=== PATIENT | female | born 1940 | race African-American/Black ===

== ENCOUNTER 2017-12-19 23:13 | Inpatient (IN) | payer MEDICARE, MEDICAID ==
[~2017-12-19] VITALS: Ht 121.9 cm; Wt 61.2 kg
[~2017-12-19 23:13] MED LIST: ALDACTONE50 MG ORAL; BISACODYL5 MG ORAL; CALCIUM500 M2 PO; DOCUSATE SODIU100 MG ORAL; FERROUS SULFAT325 MG ORAL; FUROSEMIDE40 MG ORAL; NEXIUM40 MG ORAL; OYSCO-500500 M1 PO; PANTOPRAZOLE SO40 MG ORAL; SIMVASTATIN20 MG ORAL; ZANTAC300 MG ORAL
[2017-12-19] MEDS ORDERED: ATIVAN2 MG/1 ML IV (23:34)
[2017-12-19] MEDS ORDERED: FERROUS SULFAT325 MG ORAL (23:34)
[2017-12-19] MEDS ORDERED: NORCO 5-325 TA1 EACH ORAL (23:34)
[2017-12-19] MEDS ORDERED: DULCOLAX10 MG RC (23:34)
[2017-12-19] MEDS ORDERED: ALBUTEROL2.5 MG/3 M INH (23:34)
[2017-12-19] MEDS ORDERED: OYSTER SHELL 51 EAC1 PO (23:34)
[2017-12-19] MEDS ORDERED: ACETAMINOPHEN325 M1 RC (23:34)
[2017-12-19] MEDS ORDERED: COMPAZINE25 M1 RC (23:34)
--- NOTE | 2017-12-19 23:47 | Emergency Room Report ---
History of Present Illness General Chief Complaint: Gastrointestinal Bleed Source: Family Member, Medical Record, EMS Present Illness HPI This is a 77-year-old female brought in by EMS with chief complaint of rectal bleeding. She is currently on home hospice for the last 2 years. Thus she is a DO NOT RESUSCITATE/DO NOT RESUSCITATE. Patient is in [facility]. The daughter was changing her diaper and noted bright red blood. No trauma. She is weaker than usual. There was no fever chills but no cough. No nausea no vomiting. Allergies: Coded Allergies: ASPIRIN (Verified Allergy, Unknown, 10/11/14) Patient History Past Medical History: see triage record, old chart reviewed Past Surgical History: other Pertinent Family History: none Social History: Reports: alcohol use - history of Last Menstrual Period: NA Now: No Immunizations: other Reviewed Nursing Documentation: PMH: Agreed; PSxH: Agreed Nursing Documentation-PMH Hx Cardiac Problems: No - CHF Hx Hypertension: Yes Hx Cancer: No Hx Gastrointestinal Problems: Yes - Liver cirrhosis Hx Neurological Problems: No Review of Systems Constitutional: Reports: weakness Eye: Denies: eye pain, blurred vision ENT: Denies: ear pain, nose congestion, throat swelling Respiratory: Denies: cough, shortness of breath Cardiovascular: Denies: chest pain, palpitations Gastrointestinal: Denies: abdominal pain, diarrhea, nausea, vomiting Musculoskeletal: Denies: back pain, joint pain Skin: Denies: rash Neurological: Denies: headache, numbness Endocrine: Denies: increased thirst, increased urine Hematologic/Lymphatic: Denies: easy bruising All Other Systems: negative except mentioned in HPI Physical Exam Vital Signs Date Time Temp Pulse Resp B/P (MAP) Pulse Ox O2 Delivery O2 Flow Rate FiO2 12/19/17 23:18 97.1 103 24 81/44 91 Room Air 97.2 vitals with hypotension Sp02 EP Interpretation: reviewed, normal General Appearance: cachetic, lethargic, Chronically Ill Head: normocephalic, atraumatic Eyes: bilateral eye PERRL, bilateral eye EOMI, bilateral eye scleral icterus ENT: hearing grossly normal, normal pharynx Neck: full range of motion, supple, no meningismus Respiratory: chest non-tender, lungs clear, normal breath sounds Cardiovascular #1: regular rate, rhythm, no murmur Gastrointestinal: normal bowel sounds, non tender, no mass, no organomegaly, no bruit, distended - with ascites Musculoskeletal: back normal Neurologic: grossly normal Psychiatric: depressed affect Skin: warm/dry Procedures Critical Care Time Critical Care Time Critical care is mandated in this patient who presented with sepsis secondary to pneumonia and uti. Patient require my urgent intervention to attenuate the risks of metabolic collapse which may lead to cardiovascular collapse and . Critical care time is 35 minutes excluding any reportable procedure. Critical care time included evaluation, multiple reevaluation, looking at old charts, interpreting laboratory and diagnostic data, discussing case with patient and family and consultants, and charting. Central Line Central Line : Consent: Verbal Central Line Lumen: triple Maximal Sterile Barrier Tech: yes cap, yes mask, yes sterile gown, yes sterile gloves, yes large sterile sheet, yes hand hygiene, yes chlorhexidine prep Central Line Postion: internal jugular (L) Anesthesia: local cc's of anesthesia: 3 Complications: none Central Line Post Position: sutured, good blood return, position confirmed w / CXR Attempts: One Patient Tolerated: Well Complications: None Medical Decision Making Diagnostic Impression: Primary Impression: Septic shock Additional Impressions: Pneumonia Qualified Codes: J18.1 - Lobar pneumonia, unspecified organism End stage liver disease Acute renal failure (ARF) Qualified Codes: N17.9 - Acute kidney failure, unspecified Hepatorenal syndrome Bacteriuria Anemia Qualified Codes: D64.9 - Anemia, unspecified Cirrhosis of liver with ascites Qualified Codes: K70.31 - Alcoholic cirrhosis of liver with ascites ER Course This is an unfortunate patient who has end-stage liver disease with cirrhosis and ascites. She was in hospice for the last 2 years. According to her daughter she has decreased appetite not really eating much for the last couple weeks. The daughter called 911 knowing that this would break their agreement with hospice. She wants everything to be done now. She wants CPR and intubation. Looking through the hospice paperwork, her baseline blood pressure usually runs in the 90s systolic. She was a very hard IV access. Her 1 line infiltrated so I place a central line for fluid antibiotics. She is actually more alert and indicate after IV fluid. I contacted Dr. Borja for admission since he admitted her last. Laboratory Tests Test 12/19/17 23:30 12/19/17 23:53 12/20/17 01:40 White Blood Count 17.3 K/UL (4.8-10.8) H Red Blood Count 3.87 M/UL (4.20-5.40) L Hemoglobin 9.8 G/DL (12.0-16.0) L Hematocrit 29.4 % (37.0-47.0) L Mean Corpuscular Volume 76 FL (80-99) L Mean Corpuscular Hemoglobin 25.3 PG (27.0-31.0) L Mean Corpuscular Hemoglobin Concent 33.3 G/DL (32.0-36.0) Red Cell Distribution Width 14.3 % (11.6-14.8) Platelet Count 114 K/UL (150-450) L Mean Platelet Volume 12.9 FL (6.5-10.1) H Neutrophils (%) (Auto) 80.8 % (45.0-75.0) H Lymphocytes (%) (Auto) 12.9 % (20.0-45.0) L Monocytes (%) (Auto) 5.7 % (1.0-10.0) Eosinophils (%) (Auto) 0.0 % (0.0-3.0) Basophils (%) (Auto) 0.6 % (0.0-2.0) Prothrombin Time 14.5 SEC (9.30-11.50) H Prothromb Time International Ratio 1.4 (0.9-1.1) H Activated Partial Thromboplast Time 40 SEC (23-33) H Sodium Level 138 MMOL/L (136-145) Potassium Level 4.4 MMOL/L (3.5-5.1) Chloride Level 102 MMOL/L (98-107) Carbon Dioxide Level 30 MMOL/L (21-32) Anion Gap 7 mmol/L (5-15) Blood Urea Nitrogen 66 mg/dL (7-18) H Creatinine 1.8 MG/DL (0.55-1.30) H Estimat Glomerular Filtration Rate mL/min (>60) Glucose Level 68 MG/DL (74-106) L Lactic Acid Level 2.10 mmol/L (0.66-2.22) Calcium Level 8.1 MG/DL (8.5-10.1) L Total Bilirubin 2.4 MG/DL (0.2-1.0) H Direct Bilirubin 1.6 MG/DL (0.0-0.3) H Aspartate Amino Transf (AST/SGOT) 37 U/L (15-37) Alanine Aminotransferase (ALT/SGPT) 10 U/L (12-78) L Alkaline Phosphatase 62 U/L (46-116) Troponin I 0.000 ng/mL (0.000-0.056) Total Protein 6.7 G/DL (6.4-8.2) Albumin 1.3 G/DL (3.4-5.0) L Globulin 5.4 g/dL Albumin/Globulin Ratio 0.2 (1.0-2.7) L Urine Color Estelita Urine Appearance Slightly cloudy Urine pH 5 (4.5-8.0) Urine Specific [place] 1.015 (1.005-1.035) Urine Protein 1+ (NEGATIVE) H Urine Glucose (UA) Negative (NEGATIVE) Urine Ketones Negative (NEGATIVE) Urine Occult Blood Negative (NEGATIVE) Urine Nitrite Negative (NEGATIVE) Urine Bilirubin Negative (NEGATIVE) Urine Ictotest Positive Urine Urobilinogen Normal MG/DL (0.0-1.0) Urine Leukocyte Esterase 1+ (NEGATIVE) H Urine RBC 0-2 /HPF (0 - 2) Urine WBC 2-4 /HPF (0 - 2) Urine Squamous Epithelial Cells Many /LPF (NONE/OCC) H Urine Calcium Oxalate Crystals Moderate /LPF (NONE) Urine Bacteria Few /HPF (NONE) Ammonia 65 umol/L (11-32) H Lab Results Impression labs with ARF EKG Diagnostic Results Rate: tachycardiac Rhythm: NSR ST Segments: other - NSST changes Rhythm Strip Diag. Results Rhythm Strip Time: 23:48 EP Interpretation: yes Rate: 110 Rhythm: NSR, no PVC's, no ectopy Chest X-Ray Diagnostic Results Chest X-Ray Diagnostic Results #1: Chest X-Ray Ordered: Yes # of Views/Limited/Complete: 1 View Indication: Shortness of Breath EP Interpretation: Yes Interpretation: no pneumothorax, other - poor inspiration. atelectasis. Impression: Other - Poor inspiratory film Electronically Signed by: Uli Collazo MD Chest X-Ray Diagnostic Results #2: Chest X-Ray Ordered: Yes # of Views/Limited/Complete: 2 View Indication: Other - post central line EP Interpretation: Yes Interpretation: no effusion, no pneumothorax, other - central line going to left side Impression: Other - s/p central line, rt lung atelectasis vs infiltrate Electronically Signed by: Uli Collazo MD Chest X-Ray Diagnostic Results #3: Chest X-Ray Ordered: Yes # of Views/Limited/Complete: 1 View Indication: Other EP Interpretation: Yes Interpretation: no effusion, no pneumothorax, other - better adjustment of central line Impression: Other - atelectasis Electronically Signed by: Uli Collazo MD Last Vital Signs Date Time Temp Pulse Resp B/P (MAP) Pulse Ox O2 Delivery O2 Flow Rate FiO2 12/19/17 23:18 97.1 103 24 81/44 91 Room Air 97.2 Status: improved Disposition: ADMITTED INPATIENT Condition: Critical Referrals: NON PHYSICIAN (PCP) ULI COLLAZO M.D. Dec 19, 2017 23:47
[2017-12-19 23:50] LABS: BASOPHILS % (AUTO) 0.6 % (0.0-2.0); HEMATOCRIT 29.4 % (37.0-47.0); HEMOGLOBIN 9.8 G/DL (12.0-16.0); LYMPHOCYTES % (AUTO) 12.9 % (20.0-45.0); MEAN CORPUSCULAR VOLUME 76 FL (80-99); MONOCYTES % (AUTO) 5.7 % (1.0-10.0); NEUTROPHILS % (AUTO) 80.8 % (45.0-75.0); PLATELET COUNT 114 K/UL (150-450); RED BLOOD COUNT 3.87 M/UL (4.20-5.40); RED CELL DISTRIBUTION WIDTH 14.3 % (11.6-14.8); WHITE BLOOD COUNT 17.3 K/UL (4.8-10.8)
[2017-12-20] VITALS (53 sets, daily range): BP systolic 56–120; BP diastolic 33–71
[2017-12-20 00:02] LABS: ANION GAP 7 mmol/L (5-15); BLOOD UREA NITROGEN 66 mg/dL (7-18); CALCIUM 8.1 MG/DL (8.5-10.1); CARBON DIOXIDE 30 MMOL/L (21-32); CHLORIDE 102 MMOL/L (98-107); CREATININE 1.8 MG/DL (0.55-1.30); INR 1.4 (0.9-1.1); POTASSIUM 4.4 MMOL/L (3.5-5.1); SODIUM 138 MMOL/L (136-145)
[2017-12-20 00:18] LABS: ALANINE AMINOTRANSFERASE 10 U/L (12-78); ALBUMIN 1.3 G/DL (3.4-5.0); ALBUMIN/GLOBULIN RATIO 0.2 (1.0-2.7); ALKALINE PHOSPHATASE 62 U/L (46-116); ASPARTATE AMINO TRANSFERASE 37 U/L (15-37); BILIRUBIN,TOTAL 2.4 MG/DL (0.2-1.0)
[2017-12-20 00:19] LABS: BILIRUBIN, URINE NEGATIVE (NEGATIVE); GLUCOSE, URINE (UA) NEGATIVE (NEGATIVE); KETONES,URINE NEGATIVE (NEGATIVE); LEUKOCYTE ESTERASE ,URINE 1+ (NEGATIVE); NITRITE,URINE NEGATIVE (NEGATIVE); PH,URINE 5 (4.5-8.0); PROTEIN,URINE 1+ (NEGATIVE); UROBILINOGEN,URINE NORMAL MG/DL (0.0-1.0)
[2017-12-20 00:36] LABS: APPEARANCE,URINE SLIGHTLY CLOUDY; COLOR,URINE AMBER
[2017-12-20 00:40] LABS: BILIRUBIN,DIRECT 1.6 MG/DL (0.0-0.3)
[2017-12-20] MEDS ORDERED: Piperacillin/Tazobactam 3.375 GM in NS 110 ML IVPB ONE (02:30)
[2017-12-20 06:11] LABS: HEMATOCRIT 26.9 % (37.0-47.0); HEMOGLOBIN 8.7 G/DL (12.0-16.0); MEAN CORPUSCULAR VOLUME 78 FL (80-99); RED BLOOD COUNT 3.46 M/UL (4.20-5.40); RED CELL DISTRIBUTION WIDTH 13.9 % (11.6-14.8); WHITE BLOOD COUNT 17.9 K/UL (4.8-10.8)
[2017-12-20 06:13] LABS: ANION GAP 7 mmol/L (5-15); BLOOD UREA NITROGEN 59 mg/dL (7-18); CALCIUM 7.1 MG/DL (8.5-10.1); CARBON DIOXIDE 26 MMOL/L (21-32); CHLORIDE 106 MMOL/L (98-107); CREATININE 1.7 MG/DL (0.55-1.30); POTASSIUM 3.6 MMOL/L (3.5-5.1); SODIUM 139 MMOL/L (136-145)
[2017-12-20 06:23] LABS: ALANINE AMINOTRANSFERASE 10 U/L (12-78); ALBUMIN 1.1 G/DL (3.4-5.0); ALBUMIN/GLOBULIN RATIO 0.2 (1.0-2.7); ALKALINE PHOSPHATASE 52 U/L (46-116); ASPARTATE AMINO TRANSFERASE 27 U/L (15-37); BILIRUBIN,TOTAL 2.1 MG/DL (0.2-1.0)
[2017-12-20 06:29] LABS: BILIRUBIN,DIRECT 1.5 MG/DL (0.0-0.3)
[2017-12-20] MEDS ORDERED: Miralax 17gm pkt ORAL PRN (06:30)
[2017-12-20] MEDS ORDERED: Phytonadione 10 MG in D5W 55 ML IVPB ONE (06:30)
[2017-12-20] MEDS ORDERED: Morphine Sulfate 2mg/ml Inj IVP PRN (06:30)
[2017-12-20] MEDS ORDERED: Nitroglycerin Subl 0.4mg tab SL PRN (06:30)
[2017-12-20] MEDS ORDERED: DOPamine 400mg/250ml 250 ML IV SCH (06:30)
[2017-12-20] MEDS ORDERED: Mylanta II UD 30ml ORAL PRN (06:30)
[2017-12-20] MEDS: D5NS 1,000 ML IV SCH ×2 (06:52→15:44)
[2017-12-20] MEDS ORDERED: Ketorolac 30mg Inj IV PRN (09:00)
[2017-12-20 09:26] LABS: PLATELET COUNT 138 K/UL (150-450)
--- NOTE | 2017-12-20 10:43 | Diagnostic Imaging Report ---
Indication: Shortness of breath Technique: XRAY Chest 1v Comparison: 05/19/2015 Findings: Limited exam with low lung volumes and significant patient rotation. Heart size and mediastinal contours appear stable. There is patchy atelectasis/consolidation at the left base. No large pleural effusion. No pneumothorax. There is osteopenia, scoliosis and degenerative change of the spine. Likely age-indeterminate compression deformities of mid thoracic vertebral bodies. Impression: Limited exam due to low lung volumes and significant patient rotation. Patchy left basilar atelectasis/consolidation. Heart size and mediastinal contours appear stable.
--- NOTE | 2017-12-20 10:46 | Consultation ---
History of Present Illness General Date patient seen: Dec 20, 2017 Chief Complaint: Gastrointestinal Bleed Reason for Consultation: septic shock Present Illness HPI 77-year-old female with hx of end-stage liver disease, brought in by EMS with chief complaint of rectal bleeding. She was on home hospice for the last 2 years. The daughter was changing her diaper and noted bright red blood. No trauma. She is weaker than usual. There was no fever chills but no cough. She looks cachectic and chronically ill, confused. Doesn't respond to questions. Allergies: Coded Allergies: ASPIRIN (Verified Allergy, Unknown, 10/11/14) Medication History Scheduled Bisacodyl* (Dulcolax*), 5 MG ORAL DAILY, (Reported) Calcium Carbonate (Oysco-500), 500 MG PO DAILY, (Reported) Docusate Sodium* (Docusate Sodium*), 100 MG ORAL TWICE A DAY, (Reported) Esomeprazole Magnesium (Nexium), 40 MG ORAL DAILY, (Reported) Ferrous Sulfate* (Ferrous Sulfate*), 325 MG ORAL DAILY, (Reported) Furosemide* (Lasix*), 20 MG ORAL BID, (Reported) Lorazepam* (Ativan*), Unknown Dose IV Q4H, (Reported) Ranitidine Hcl (Zantac), 300 MG ORAL DAILY, (Reported) Simvastatin (Zocor), 20 MG ORAL BEDTIME, (Reported) Scheduled PRN Acetaminophen* (Acetaminophen 325MG Tablet*), 650 MG RC Q4HR PRN for Fever/ Headache/Mild Pain, (Reported) Albuterol Sulfate* (Albuterol Sulfate Hhn*), Unknown Dose INH Q4H PRN for Shortness of Breath, (Reported) Bisacodyl (Dulcolax), 10 MG RC PRN PRN for Constipation, (Reported) Hydrocodone Bit/Acetaminophen 5-325* ([place] 5-325*), 1 TAB ORAL Q4H PRN for For Pain, (Reported) Prochlorperazine Maleate (Compazine), 25 MG RC Q12HR PRN for Nausea & Vomiting, (Reported) Miscellaneous Medications Calcium Carbonate/Vitamin D3 (Oyster Shell 500 Mg + Vit D Tb), 1 EACH PO, ( Reported) Patient History Healthcare decision maker Resuscitation status Advanced Directive on File Past Medical/Surgical History Past Medical/Surgical History: (1) Cirrhosis of liver with ascites (2) End stage liver disease (3) Elevated lipase (4) Elevated CEA Review of Systems Constitutional: Reports: malaise, weakness All Other Systems: negative except mentioned in HPI Physical Exam General Appearance: cachetic Lines, tubes and drains: peripheral HEENT: normocephalic, atraumatic Neck: non-tender, normal alignment Respiratory/Chest: chest wall non-tender, lungs clear Breasts: no masses Cardiovascular/Chest: normal peripheral pulses, normal rate Abdomen: distended Genitourinary/Rectal: normal genital exam Extremities: normal range of motion Skin Exam: jaundice Last 24 Hour Vital Signs Date Time Temp Pulse Resp B/P (MAP) Pulse Ox O2 Delivery O2 Flow Rate FiO2 12/20/17 08:26 81/45 12/20/17 08:19 95 Nasal Cannula 2.0 28 12/20/17 08:19 Nasal Cannula 2.0 28 12/20/17 07:00 111 20 111/71 100 Nasal Cannula 2.0 12/20/17 06:45 107 20 56/36 100 Nasal Cannula 2.0 12/20/17 06:30 101 20 90/58 100 Nasal Cannula 2.0 12/20/17 06:15 98 20 91/52 100 Nasal Cannula 2.0 12/20/17 06:00 94 20 95/49 100 Nasal Cannula 2.0 12/20/17 05:51 102 12/20/17 05:45 95 20 94/52 100 Nasal Cannula 2.0 12/20/17 05:36 97.5 92 16 109/60 95 Room Air 12/20/17 05:30 97.3 102 22 88/53 98 Nasal Cannula 2.0 97.3 12/20/17 05:28 Nasal Cannula 2.0 28 12/20/17 05:28 96 Nasal Cannula 2.0 28 12/20/17 05:08 97.5 92 16 109/60 95 97.5 12/20/17 05:06 95 17 111/60 95 12/20/17 04:45 101 20 88/63 94 12/20/17 04:30 98 15 120/70 95 12/20/17 04:16 73/41 12/20/17 04:11 79/41 12/20/17 04:09 71/35 12/20/17 04:06 68/38 12/20/17 04:01 71/35 12/20/17 04:00 112 17 74/39 94 12/20/17 03:46 70/43 12/20/17 03:41 66/41 12/20/17 03:36 86/43 12/20/17 03:30 119 15 66/41 94 12/20/17 03:00 117 28 86/43 96 Room Air 12/20/17 02:30 110 18 73/37 94 Room Air 12/20/17 02:00 108 18 72/40 94 Room Air 12/20/17 01:30 121 23 69/44 96 12/20/17 01:00 97.2 60 12 85/33 100 Room Air 97.2 12/20/17 00:30 95 19 81/42 94 12/20/17 00:00 100 13 91/62 94 12/19/17 23:18 97.1 103 24 81/44 91 Room Air 97.2 Intake and Output 12/19/17 12/20/17 19:00 07:00 Intake Total 1000 ml Balance 1000 ml Intake IV Total 1000 ml # Voids 1 Laboratory Tests Test 12/19/17 23:30 12/19/17 23:53 12/20/17 01:40 12/20/17 02:26 White Blood Count 17.3 K/UL (4.8-10.8) H Red Blood Count 3.87 M/UL (4.20-5.40) L Hemoglobin 9.8 G/DL (12.0-16.0) L Hematocrit 29.4 % (37.0-47.0) L Mean Corpuscular Volume 76 FL (80-99) L Mean Corpuscular Hemoglobin 25.3 PG (27.0-31.0) L Mean Corpuscular Hemoglobin Concent 33.3 G/DL (32.0-36.0) Red Cell Distribution Width 14.3 % (11.6-14.8) Platelet Count 114 K/UL (150-450) L Mean Platelet Volume 12.9 FL (6.5-10.1) H Neutrophils (%) (Auto) 80.8 % (45.0-75.0) H Lymphocytes (%) (Auto) 12.9 % (20.0-45.0) L Monocytes (%) (Auto) 5.7 % (1.0-10.0) Eosinophils (%) (Auto) 0.0 % (0.0-3.0) Basophils (%) (Auto) 0.6 % (0.0-2.0) Prothrombin Time 14.5 SEC (9.30-11.50) H Prothromb Time International Ratio 1.4 (0.9-1.1) H Activated Partial Thromboplast Time 40 SEC (23-33) H Sodium Level 138 MMOL/L (136-145) Potassium Level 4.4 MMOL/L (3.5-5.1) Chloride Level 102 MMOL/L (98-107) Carbon Dioxide Level 30 MMOL/L (21-32) Anion Gap 7 mmol/L (5-15) Blood Urea Nitrogen 66 mg/dL (7-18) H Creatinine 1.8 MG/DL (0.55-1.30) H Estimat Glomerular Filtration Rate mL/min (>60) Glucose Level 68 MG/DL (74-106) L Lactic Acid Level 2.10 mmol/L (0.66-2.22) 2.10 mmol/L (0.66-2.22) Calcium Level 8.1 MG/DL (8.5-10.1) L Total Bilirubin 2.4 MG/DL (0.2-1.0) H Direct Bilirubin 1.6 MG/DL (0.0-0.3) H Aspartate Amino Transf (AST/SGOT) 37 U/L (15-37) Alanine Aminotransferase (ALT/SGPT) 10 U/L (12-78) L Alkaline Phosphatase 62 U/L (46-116) Troponin I 0.000 ng/mL (0.000-0.056) Total Protein 6.7 G/DL (6.4-8.2) Albumin 1.3 G/DL (3.4-5.0) L Globulin 5.4 g/dL Albumin/Globulin Ratio 0.2 (1.0-2.7) L Urine Color Estelita Urine Appearance Slightly cloudy Urine pH 5 (4.5-8.0) Urine Specific [place] 1.015 (1.005-1.035) Urine Protein 1+ (NEGATIVE) H Urine Glucose (UA) Negative (NEGATIVE) Urine Ketones Negative (NEGATIVE) Urine Occult Blood Negative (NEGATIVE) Urine Nitrite Negative (NEGATIVE) Urine Bilirubin Negative (NEGATIVE) Urine Ictotest Positive Urine Urobilinogen Normal MG/DL (0.0-1.0) Urine Leukocyte Esterase 1+ (NEGATIVE) H Urine RBC 0-2 /HPF (0 - 2) Urine WBC 2-4 /HPF (0 - 2) Urine Squamous Epithelial Cells Many /LPF (NONE/OCC) H Urine Calcium Oxalate Crystals Moderate /LPF (NONE) Urine Bacteria Few /HPF (NONE) Ammonia 65 umol/L (11-32) H Test 12/20/17 05:50 White Blood Count 17.9 K/UL (4.8-10.8) H Red Blood Count 3.46 M/UL (4.20-5.40) L Hemoglobin 8.7 G/DL (12.0-16.0) L Hematocrit 26.9 % (37.0-47.0) L Mean Corpuscular Volume 78 FL (80-99) L Mean Corpuscular Hemoglobin 25.3 PG (27.0-31.0) L Mean Corpuscular Hemoglobin Concent 32.5 G/DL (32.0-36.0) Red Cell Distribution Width 13.9 % (11.6-14.8) Platelet Count 138 K/UL (150-450) L Mean Platelet Volume 16.1 FL (6.5-10.1) H Neutrophils (%) (Auto) % (45.0-75.0) Lymphocytes (%) (Auto) % (20.0-45.0) Monocytes (%) (Auto) % (1.0-10.0) Eosinophils (%) (Auto) % (0.0-3.0) Basophils (%) (Auto) % (0.0-2.0) Differential Total Cells Counted 100 Neutrophils % (Manual) 91 % (45-75) H Lymphocytes % (Manual) 1 % (20-45) L Monocytes % (Manual) 8 % (1-10) Eosinophils % (Manual) 0 % (0-3) Basophils % (Manual) 0 % (0-2) Band Neutrophils 0 % (0-8) Platelet Estimate Decreased L Platelet Morphology Giant Platelets 1+ Polychromasia 1+ Hypochromasia 1+ Microcytosis 1+ Sodium Level 139 MMOL/L (136-145) Potassium Level 3.6 MMOL/L (3.5-5.1) Chloride Level 106 MMOL/L (98-107) Carbon Dioxide Level 26 MMOL/L (21-32) Anion Gap 7 mmol/L (5-15) Blood Urea Nitrogen 59 mg/dL (7-18) H Creatinine 1.7 MG/DL (0.55-1.30) H Estimat Glomerular Filtration Rate mL/min (>60) Glucose Level 108 MG/DL (74-106) H Calcium Level 7.1 MG/DL (8.5-10.1) L Total Bilirubin 2.1 MG/DL (0.2-1.0) H Direct Bilirubin 1.5 MG/DL (0.0-0.3) H Aspartate Amino Transf (AST/SGOT) 27 U/L (15-37) Alanine Aminotransferase (ALT/SGPT) 10 U/L (12-78) L Alkaline Phosphatase 52 U/L (46-116) Total Protein 5.8 G/DL (6.4-8.2) L Albumin 1.1 G/DL (3.4-5.0) L Globulin 4.7 g/dL Albumin/Globulin Ratio 0.2 (1.0-2.7) L Height (Feet): 4 Weight (Pounds): 135 Medications Current Medications Medications (Trade) Dose Ordered Sig/Derek Route PRN Reason Start Time Stop Time Status Last Admin Dose Admin Acetaminophen (Tylenol) 650 mg Q4H PRN ORAL fever 12/20/17 06:30 01/19/18 06:29 Al Hydroxide/Mg Hydroxide (Mylanta II) 30 ml Q6H PRN ORAL dyspepsia 12/20/17 06:30 01/19/18 06:29 Dextrose (Dextrose 50%) STAT PRN IV Hypoglycemia 12/20/17 06:30 01/19/18 06:29 Dextrose/Sodium Chloride 1,000 ml @ 100 mls/hr Q10H IV 12/20/17 06:30 01/19/18 06:29 12/20/17 06:52 Diphenhydramine HCl (Benadryl) 25 mg Q6H PRN ORAL Itching/Pruritis 12/20/17 06:30 01/19/18 06:29 Ketorolac Tromethamine (Toradol 30mg) 15 mg Q6H PRN IV Moderate Pain (Pain Scale 4-6) 12/20/17 09:00 12/25/17 08:59 Morphine Sulfate (Morphine Sulfate) 2 mg EVERY 4 HOURS PRN IVP severe Pain (Pain Scale 7-10) 12/20/17 06:30 12/27/17 06:29 Nitroglycerin (Ntg) 0.4 mg Q5M X 3 DOSES PRN SL Prn Chest Pain 12/20/17 06:30 01/19/18 06:29 Norepinephrine Bitartrate 8 mg/ Sodium Chloride 250 ml @ 0 mls/hr Q24H IV 12/20/17 06:45 01/19/18 06:44 12/20/17 08:26 Ondansetron HCl (Zofran) 4 mg Q6H PRN IVP Nausea & Vomiting 12/20/17 06:30 01/19/18 06:29 Polyethylene Glycol (Miralax) 17 gm HSPRN PRN ORAL Constipation 12/20/17 06:30 01/19/18 06:29 Sodium Chloride 1,000 ml @ 10 mls/hr Q24H ONCE IV 12/19/17 23:30 12/20/17 23:29 12/20/17 00:15 Temazepam (Restoril) 15 mg HSPRN PRN ORAL Insomnia 12/20/17 06:30 12/27/17 06:29 Assessment/Plan Problem List: (1) Septic shock ICD Codes: A41.9 - Sepsis, unspecified organism; R65.21 - Severe sepsis with septic shock SNOMED: 41145498 (2) Pneumonia ICD Codes: J18.9 - Pneumonia, unspecified organism SNOMED: 882279359 Qualifiers: Qualified Codes: J18.1 - Lobar pneumonia, unspecified organism (3) End stage liver disease ICD Codes: K72.90 - Hepatic failure, unspecified without coma SNOMED: 981301365 (4) Acute renal failure (ARF) ICD Codes: N17.9 - Acute kidney failure, unspecified SNOMED: 65668393, 343927690 Qualifiers: Qualified Codes: N17.9 - Acute kidney failure, unspecified (5) Bacteriuria ICD Codes: R82.71 - Bacteriuria SNOMED: 90694282 (6) Anemia ICD Codes: D64.9 - Anemia, unspecified SNOMED: 525232816 Qualifiers: Qualified Codes: D64.9 - Anemia, unspecified Assessment/Plan iv fluids iv abx on levophed Paracentesis when vital signs are stable GI evaluation PRBC PRN FFP, vitamin K check plt and INR in am family meeting about goal of care. Jeni Cabrera MD Dec 20, 2017 10:46
--- NOTE | 2017-12-20 10:46 | Diagnostic Imaging Report ---
Indication: Central line placement consolidation Technique: XRAY Chest 1v Comparison: 12/19/2017, 23:37 Findings: Interval placement of a right internal jugular vein approach central venous catheter. The catheter is malpositioned in the region of the left brachiocephalic/subclavian vein. Repositioning recommended. No pneumothorax. Additional findings without significant interval change compared to the prior exam. Impression: Malpositioned right transjugular central venous catheter. Repositioning recommended.
--- NOTE | 2017-12-20 10:49 | Diagnostic Imaging Report ---
Indication: Central line repositioning Technique: XRAY Chest 1v Comparison: 12/20/2017, 1:53 Findings: Interval retraction/repositioning of right transjugular central venous catheter. Catheter tip in the region of the lower SVC. Heart size and mediastinal contours are stable. There is again patchy atelectasis at the left base. Pulmonary vascularity appears slightly hazier compared to the prior exam and there is some linear opacity in the right midlung. This is unchanged. No large pleural effusion. No definite pneumothorax. Osteopenia, degenerative change of the spine age-indeterminate compression deformity of mid/lower thoracic vertebral body. Impression: Interval retraction/repositioning of right transjugular central venous catheter. Catheter tip now in the expected region of the lower SVC. No definite pneumothorax. Increased haziness of the pulmonary vascularity possibly representing mild interstitial edema/fluid overload. New linear opacity in the right midlung possibly fluid along the fissure or atelectasis. Clinical correlation and follow-up exam recommended.
--- NOTE | 2017-12-20 10:58 | General Progress Note ---
Progress Note Progress Note [id number] full consult dictated TAMAR DOLL Dec 20, 2017 10:58
--- NOTE | 2017-12-20 12:50 | Consultation ---
Consult Note Consult Note [id number] Román Ching MD Dec 20, 2017 12:50
[2017-12-20] MEDS: Meropenem 1 GM in NS 55 ML IVPB SCH (13:45)
[2017-12-20] MEDS: Midodrine 10mg tab ORAL SCH ×2 (13:46→17:15)
[2017-12-20] MEDS ORDERED: Digoxin 0.5mg/2ml Inj IVP ONE (19:30)
--- NOTE | 2017-12-20 19:45 | History and Physical Report ---
DATE OF ADMISSION: 12/20/2017 CONSULTANTS: 1. Jeni Cabrera M.D. 2. Román Ching M.D. 3. Amol Maldonado M.D. 4. Janice Hinton M.D. CHIEF COMPLAINT: Pneumonia, sepsis, shock. BRIEF HISTORY: This is a 77-year-old female, who lives at home, previously on hospice, apparently became very short of breath and weak, and daughter reversed her hospice and brought her to [facility], diagnosed with pneumonia, sepsis, shock and admitted to ICU for further care. Currently awake in bed, slightly confused. No complaint otherwise. REVIEW OF SYSTEMS: No chest pain. Slight short of breath. No nausea, vomiting, or diarrhea. PAST MEDICAL HISTORY: Renal insufficiency, hypertension, pancreatic cyst, hepatorenal syndrome, cirrhosis of the liver, and acute renal failure. PAST SURGICAL HISTORY: Unknown. ALLERGIES: Aspirin. SOCIAL HISTORY: Unable to obtain secondary to the patient's confusion. PHYSICAL EXAMINATION: GENERAL: Calm in bed, oriented x1, in no acute distress. VITAL SIGNS: Temperature is 97, pulse 99, respirations 14, blood pressure 82/47. CARDIOVASCULAR: No murmur. LUNGS: Distant. Poor exchange. ABDOMEN: Bowel sounds distant, positive. Slightly distended. Soft. No guarding. No rigidity. No rebound. EXTREMITIES: No cyanosis, clubbing, or edema. NEUROLOGIC: The patient moves all extremities, slightly weak. LABORATORY AND DIAGNOSTIC DATA: White count 17, H and H 8.7/26, platelets 138. BMP shows BUN and creatinine 59 and 1.7, glucose 108, albumin 1.1. INR is 1.4, PTT is 40. Urinalysis shows 1+ leukocyte esterase. MEDICATIONS: Include Protonix, midodrine, albumin, Ketoralac, norepinephrine, morphine, Tylenol, Zofran, temazepam, Zosyn, and levofloxacin. ASSESSMENT: 1. Pneumonia. 2. Urinary tract infection. 3. Sepsis. 4. Shock. 5. Anemia, . 6. Acute renal failure. 7. Cirrhosis. 8. Renal failure. PLAN: 1. O2 and pulmonary treatment. 2. Antibiotics per Infectious Disease. 3. Blood pressure and blood sugar control. 4. Resume home medications. 5. OT, PT, and dietary evaluation. 6. CBC and BMP in morning. 7. We will continue to follow this patient. Dawson Borja D.O. DR: HUNTER JOB#: [id number] CC:
--- NOTE | 2017-12-20 20:15 | Cardiology Progress Note ---
Assessment/Plan Assessment/Plan The patient is seen and examined, full consult note is dictated. Objective Last 24 Hour Vital Signs Date Time Temp Pulse Resp B/P (MAP) Pulse Ox O2 Delivery O2 Flow Rate FiO2 12/20/17 19:52 155 12/20/17 19:00 150 19 88/52 99 Nasal Cannula 2.0 12/20/17 18:30 142 19 88/52 96 Nasal Cannula 2.0 12/20/17 18:06 89/48 12/20/17 18:00 97.0 142 18 91/42 99 Nasal Cannula 2.0 97.0 12/20/17 17:30 140 18 90/45 99 Nasal Cannula 2.0 12/20/17 17:00 139 16 84/54 99 Nasal Cannula 2.0 12/20/17 16:30 147 16 82/55 100 Nasal Cannula 2.0 12/20/17 16:00 138 12/20/17 16:00 97.0 144 17 83/47 100 Nasal Cannula 2.0 97.0 12/20/17 15:30 150 17 73/42 92 Nasal Cannula 2.0 12/20/17 15:00 146 17 79/47 93 Nasal Cannula 2.0 12/20/17 14:30 124 17 91/50 95 Nasal Cannula 2.0 12/20/17 14:00 105 18 91/46 96 Nasal Cannula 2.0 12/20/17 13:30 98 15 91/42 96 Nasal Cannula 2.0 12/20/17 13:00 99 14 91/42 99 Nasal Cannula 2.0 12/20/17 12:30 102 15 86/42 96 Nasal Cannula 2.0 12/20/17 12:00 102 12/20/17 12:00 97.2 107 14 74/42 98 Nasal Cannula 2.0 97.2 12/20/17 11:30 100 14 83/39 96 Nasal Cannula 2.0 12/20/17 11:00 100 11 85/41 95 Nasal Cannula 2.0 12/20/17 10:30 99 14 82/47 99 Nasal Cannula 2.0 12/20/17 10:00 97 20 82/47 97 Nasal Cannula 2.0 12/20/17 09:30 100 16 83/53 100 Nasal Cannula 2.0 12/20/17 09:00 105 20 91/48 100 Nasal Cannula 2.0 12/20/17 08:30 103 18 84/44 100 Nasal Cannula 2.0 12/20/17 08:26 81/45 12/20/17 08:19 95 Nasal Cannula 2.0 28 12/20/17 08:19 Nasal Cannula 2.0 28 12/20/17 08:00 97.0 109 17 83/43 98 Nasal Cannula 2.0 97.0 12/20/17 07:30 100 15 94/50 100 Nasal Cannula 2.0 12/20/17 07:00 111 20 111/71 100 Nasal Cannula 2.0 12/20/17 06:45 107 20 56/36 100 Nasal Cannula 2.0 12/20/17 06:30 101 20 90/58 100 Nasal Cannula 2.0 12/20/17 06:15 98 20 91/52 100 Nasal Cannula 2.0 12/20/17 06:00 94 20 95/49 100 Nasal Cannula 2.0 12/20/17 05:51 102 12/20/17 05:45 95 20 94/52 100 Nasal Cannula 2.0 12/20/17 05:36 97.5 92 16 109/60 95 Room Air 12/20/17 05:30 97.3 102 22 88/53 98 Nasal Cannula 2.0 97.3 12/20/17 05:28 Nasal Cannula 2.0 28 12/20/17 05:28 96 Nasal Cannula 2.0 28 12/20/17 05:08 97.5 92 16 109/60 95 97.5 12/20/17 05:06 95 17 111/60 95 12/20/17 04:45 101 20 88/63 94 12/20/17 04:30 98 15 120/70 95 12/20/17 04:16 73/41 18 04:11 79/41 12/20/17 04:09 71/35 12/20/17 04:06 68/38 12/20/17 04:01 71/35 12/20/17 04:00 112 17 74/39 94 12/20/17 03:46 70/43 12/20/17 03:41 66/41 12/20/17 03:36 86/43 12/20/17 03:30 119 15 66/41 94 12/20/17 03:00 117 28 86/43 96 Room Air 12/20/17 02:30 110 18 73/37 94 Room Air 4/20/18 02:00 108 18 72/40 94 Room Air 12/20/17 01:30 121 23 69/44 96 12/20/17 01:00 97.2 60 12 85/33 100 Room Air 97.2 12/20/17 00:30 95 19 81/42 94 12/20/17 00:00 100 13 91/62 94 12/19/17 23:18 97.1 103 24 81/44 91 Room Air 97.2 Intake and Output 12/19/17 12/20/17 19:00 07:00 Intake Total 1000 ml Balance 1000 ml Intake IV Total 1000 ml # Voids 1 Laboratory Tests Test 12/19/17 23:30 12/19/17 23:53 12/20/17 01:40 12/20/17 02:26 White Blood Count 17.3 K/UL (4.8-10.8) H Red Blood Count 3.87 M/UL (4.20-5.40) L Hemoglobin 9.8 G/DL (12.0-16.0) L Hematocrit 29.4 % (37.0-47.0) L Mean Corpuscular Volume 76 FL (80-99) L Mean Corpuscular Hemoglobin 25.3 PG (27.0-31.0) L Mean Corpuscular Hemoglobin Concent 33.3 G/DL (32.0-36.0) Red Cell Distribution Width 14.3 % (11.6-14.8) Platelet Count 114 K/UL (150-450) L Mean Platelet Volume 12.9 FL (6.5-10.1) H Neutrophils (%) (Auto) 80.8 % (45.0-75.0) H Lymphocytes (%) (Auto) 12.9 % (20.0-45.0) L Monocytes (%) (Auto) 5.7 % (1.0-10.0) Eosinophils (%) (Auto) 0.0 % (0.0-3.0) Basophils (%) (Auto) 0.6 % (0.0-2.0) Prothrombin Time 14.5 SEC (9.30-11.50) H Prothromb Time International Ratio 1.4 (0.9-1.1) H Activated Partial Thromboplast Time 40 SEC (23-33) H Sodium Level 138 MMOL/L (136-145) Potassium Level 4.4 MMOL/L (3.5-5.1) Chloride Level 102 MMOL/L (98-107) Carbon Dioxide Level 30 MMOL/L (21-32) Anion Gap 7 mmol/L (5-15) Blood Urea Nitrogen 66 mg/dL (7-18) H Creatinine 1.8 MG/DL (0.55-1.30) H Estimat Glomerular Filtration Rate mL/min (>60) Glucose Level 68 MG/DL (74-106) L Lactic Acid Level 2.10 mmol/L (0.66-2.22) 2.10 mmol/L (0.66-2.22) Calcium Level 8.1 MG/DL (8.5-10.1) L Total Bilirubin 2.4 MG/DL (0.2-1.0) H Direct Bilirubin 1.6 MG/DL (0.0-0.3) H Aspartate Amino Transf (AST/SGOT) 37 U/L (15-37) Alanine Aminotransferase (ALT/SGPT) 10 U/L (12-78) L Alkaline Phosphatase 62 U/L (46-116) Troponin I 0.000 ng/mL (0.000-0.056) Total Protein 6.7 G/DL (6.4-8.2) Albumin 1.3 G/DL (3.4-5.0) L Globulin 5.4 g/dL Albumin/Globulin Ratio 0.2 (1.0-2.7) L Urine Color Estelita Urine Appearance Slightly cloudy Urine pH 5 (4.5-8.0) Urine Specific [place] 1.015 (1.005-1.035) Urine Protein 1+ (NEGATIVE) H Urine Glucose (UA) Negative (NEGATIVE) Urine Ketones Negative (NEGATIVE) Urine Occult Blood Negative (NEGATIVE) Urine Nitrite Negative (NEGATIVE) Urine Bilirubin Negative (NEGATIVE) Urine Ictotest Positive Urine Urobilinogen Normal MG/DL (0.0-1.0) Urine Leukocyte Esterase 1+ (NEGATIVE) H Urine RBC 0-2 /HPF (0 - 2) Urine WBC 2-4 /HPF (0 - 2) Urine Squamous Epithelial Cells Many /LPF (NONE/OCC) H Urine Calcium Oxalate Crystals Moderate /LPF (NONE) Urine Bacteria Few /HPF (NONE) Ammonia 65 umol/L (11-32) H Test 12/20/17 05:50 12/20/17 16:30 White Blood Count 17.9 K/UL (4.8-10.8) H Red Blood Count 3.46 M/UL (4.20-5.40) L Hemoglobin 8.7 G/DL (12.0-16.0) L Hematocrit 26.9 % (37.0-47.0) L Mean Corpuscular Volume 78 FL (80-99) L Mean Corpuscular Hemoglobin 25.3 PG (27.0-31.0) L Mean Corpuscular Hemoglobin Concent 32.5 G/DL (32.0-36.0) Red Cell Distribution Width 13.9 % (11.6-14.8) Platelet Count 138 K/UL (150-450) L Mean Platelet Volume 16.1 FL (6.5-10.1) H Neutrophils (%) (Auto) % (45.0-75.0) Lymphocytes (%) (Auto) % (20.0-45.0) Monocytes (%) (Auto) % (1.0-10.0) Eosinophils (%) (Auto) % (0.0-3.0) Basophils (%) (Auto) % (0.0-2.0) Differential Total Cells Counted 100 Neutrophils % (Manual) 91 % (45-75) H Lymphocytes % (Manual) 1 % (20-45) L Monocytes % (Manual) 8 % (1-10) Eosinophils % (Manual) 0 % (0-3) Basophils % (Manual) 0 % (0-2) Band Neutrophils 0 % (0-8) Platelet Estimate Decreased L Platelet Morphology Giant Platelets 1+ Polychromasia 1+ Hypochromasia 1+ Microcytosis 1+ Sodium Level 139 MMOL/L (136-145) Potassium Level 3.6 MMOL/L (3.5-5.1) Chloride Level 106 MMOL/L (98-107) Carbon Dioxide Level 26 MMOL/L (21-32) Anion Gap 7 mmol/L (5-15) Blood Urea Nitrogen 59 mg/dL (7-18) H Creatinine 1.7 MG/DL (0.55-1.30) H Estimat Glomerular Filtration Rate mL/min (>60) Glucose Level 108 MG/DL (74-106) H Calcium Level 7.1 MG/DL (8.5-10.1) L Total Bilirubin 2.1 MG/DL (0.2-1.0) H Direct Bilirubin 1.5 MG/DL (0.0-0.3) H Aspartate Amino Transf (AST/SGOT) 27 U/L (15-37) Alanine Aminotransferase (ALT/SGPT) 10 U/L (12-78) L Alkaline Phosphatase 52 U/L (46-116) Total Protein 5.8 G/DL (6.4-8.2) L Albumin 1.1 G/DL (3.4-5.0) L Globulin 4.7 g/dL Albumin/Globulin Ratio 0.2 (1.0-2.7) L Urine Eosinophils None seen Urine Random Creatinine Pending Urine Random Microalbumin Pending Urine Random Total Protein 89 MG/DL (< 11.9) H Urine Random Sodium 15 mmol/L (20-110) L Urine Creatinine 51.1 MG/DL (30.0-125.0) Urine Microalbumin/Creatinine Ratio Pending JONATHON KRAFT Dec 20, 2017 20:15
[2017-12-20] MEDS: Pantoprazole Inj IVP SCH (20:40)
--- NOTE | 2017-12-20 21:30 | Consultation ---
DATE OF CONSULTATION: 12/20/2017 NEPHROLOGY CONSULTATION CONSULTING PHYSICIAN: aJnice Hinton M.D. REFERRING PHYSICIAN: Dawson Borja D.O. REASON FOR CONSULTATION: Acute renal failure. HISTORY OF PRESENT ILLNESS: The patient is an unfortunate 77-year-old female with past medical history significant for history of alcoholic liver cirrhosis and history of hypertension. She is on home hospice for the last 2 years and she was found to have bright red blood per rectum in her diaper and she was brought into emergency room. In the ER, the patient was found to be hypotensive having acute gastrointestinal bleeding, found to have a creatinine of 1.7. The patient was started on pressor and was admitted in the ICU. I was called for management of renal disease and electrolyte imbalance. PAST MEDICAL HISTORY: 1. History of hypertension. 2. History of end-stage liver cirrhosis. 3. History of malnutrition. ALLERGIES: The patient is allergic to aspirin. REVIEW OF SYSTEMS: GENERAL: The patient complained of generalized weakness. Denies any fever, chills, or night sweats. HEAD AND NECK: Denies any dysphagia, odynophagia, blurry vision, headache, or neck stiffness. PULMONARY: Denies any shortness of breath. No cough or sputum. CARDIOVASCULAR: No chest pain or palpitations. GASTROINTESTINAL: Complained of bright red blood. No nausea. No vomiting. GENITOURINARY: Denies any dysuria, frequency, or hematuria. However, upon arrival in ICU, nurse placed a Vasquez catheter. The patient was found to have 1700 mL of urine currently. PHYSICAL EXAMINATION: VITAL SIGNS: The patient had temperature of 97 degrees, pulse rate of 97, respiratory rate of 24, and blood pressure of 81/44. HEAD AND NECK: Bitemporal wasting. Sclerae are icteric. Extraocular movement intact. Pupils are reactive to light and accommodation. LUNGS: Decreased breathing sound on both sides. CARDIAC: Tachy. S1 and S2. Positive systolic murmur. ABDOMEN: Distended. Positive shifting dullness. Positive ascites. EXTREMITIES: A 3 to 4+ edema. No clubbing. No cyanosis. LABORATORY DATA: Sodium 139, potassium 3.6, chloride 106, bicarbonate 26, BUN 59, creatinine of 1.7, glucose of 108, and calcium of 7.1. AST of 27, ALT of 10, and alkaline phosphatase of 52. Albumin is 1.1. Total protein of 5.8. UA revealed specific gravity of 1.015, pH of 5, protein 1+, wbc 0 to 2, and rbc 0 to 2. CBC revealed WBC count of 17.9, hemoglobin of 8.7, hematocrit of 26, and platelet count of 138,000. ASSESSMENT: 1. Acute renal failure. The etiology of acute renal failure is acute tubular necrosis due to unstable hemodynamics and hypotension versus hepatorenal syndrome. 2. Hypocalcemia. 3. Severe malnutrition with albumin of 1.1. 4. Elevated white blood cell count, rule out . 5. Gastrointestinal bleeding. 6. Hypotension. PLAN: Plan for the patient is to check the random urine [id number]-[id number] ratio to calculate the proteinuria. Check the urine sodium and creatinine to calculate fractional excretion of sodium. Ultrasound of the kidney to evaluate the kidney size. Continuation with IV fluid. Started the patient on midodrine and albumin for possible hepatorenal syndrome and consider paracentesis when the patient's blood pressure is more under control. At the end, I would like to thank Dr. Dawson Borja for allowing me to participate in the care of this patient. Janice Hinton M.D. DR: Dov JOB#: [id number] CC:
--- NOTE | 2017-12-20 23:45 | Consultation ---
DATE OF CONSULTATION: 12/20/2017 NOTE: INCOMPLETE DICTATION CARDIOLOGY CONSULTATION CONSULTING PHYSICIAN: Amol Maldonado M.D. REFERRING PHYSICIAN: Dawson Borja D.O. REASON FOR CONSULTATION: Management of atrial fibrillation. HISTORY OF PRESENT ILLNESS: This patient is seen in the intensive care unit of [facility] for management of paroxysmal atrial fibrillation. The patient is a very unfortunate 77-year-old female, who was brought in by EMS with initial complaint of rectal bleed. The patient has been on home hospice for the past 2 years and she has Do Not Resuscitate and Do Not Intubate status, however, the daughter . Amol Maldonado M.D. DR: GWYN JOB#: [id number] CC:
[2017-12-21] VITALS (24 sets, daily range): BP systolic 61–102; BP diastolic 29–61
--- NOTE | 2017-12-21 00:45 | Consultation ---
DATE OF CONSULTATION: 12/20/2017 CARDIOLOGY CONSULTATION CONSULTING PHYSICIAN: Amol Maldonado M.D. REFERRING PHYSICIAN: Dawson Borja D.O. REASON FOR CONSULTATION: Management of paroxysmal atrial fibrillation. HISTORY OF PRESENT ILLNESS: The patient is a very unfortunate 77-year-old lady, who was brought in by EMS with complaint of rectal bleed. Apparently, the patient has been on home hospice for the past 2 years with DNR and DNI. According to the daughter, her status has changed to Full Code. The daughter stated that she noted bright red blood in her diaper. On arrival to the emergency department, initial blood pressure was 81/44 mmHg, pulse was 103. Initial 12-lead electrocardiogram in the emergency department was sinus tachycardia, rate of 114 with right bundle-branch block, and left anterior fascicular block. The patient was admitted to intensive care unit of [facility] with diagnosis of hypotension, most likely due to blood loss. Cardiology consultation was made as the patient shows paroxysmal atrial fibrillation where the heart rate rises to 150 beats per minute. In the emergency department, the patient was placed on Levophed drip and apparently, she maxed out on that. PAST MEDICAL HISTORY: Significant for: 1. Liver cirrhosis. 2. Hypertension. 3. History of congestive heart failure. PAST SURGICAL HISTORY: None. MEDICATIONS: List of medications at home includes acetaminophen 650 mg rectal q.4 h. p.r.n. fever, headache, and pain. Albuterol inhaler q.4 h. p.r.n. for shortness of breath, Dulcolax 10 mg rectal p.r.n. constipation, calcium carbonate 500 mg p.o. daily, Oyster Shell 500 mg Plus Vitamin D one tablet daily, Colace 100 mg twice daily, Nexium 40 mg p.o. daily, ferrous sulfate 325 mg p.o. daily, Lasix 20 mg p.o. twice daily, Glouster 5/325 one tablet q.4 h. p.r.n. pain, Ativan 2 mg IV q.4 h. as needed for agitation, Compazine 25 mg rectal q.12 h. p.r.n. nausea and vomiting, Zantac 300 mg p.o. daily, and Zocor 20 mg p.o. nightly. ALLERGIES: To aspirin. SOCIAL HISTORY: The patient states that she was drinking heavily in the past and was alcoholic. Denies any current tobacco or illicit drug use. REVIEW OF SYSTEMS: HEENT: Denies any headache, diplopia, or blurred vision. CONSTITUTIONAL: Complains of generalized weakness but no fever, chills, or night sweats. CARDIOVASCULAR: Denies any chest pain, shortness of breath, PND, or orthopnea. Complains of bilateral lower extremity edema. PULMONARY: Denies any cough, hemoptysis, or wheezing. GASTROINTESTINAL: Complains of bright red blood per rectum, but no abdominal pain. She has increased abdominal girth. GENITOURINARY: Denies any hematuria or dysuria, but has incontinence and wearing diaper. NEUROLOGIC: Denies any motor dysfunction, sensory deficit, or altered speech. PHYSICAL EXAMINATION: GENERAL: The patient is a very unfortunate 77-year-old lady who appears to be cachectic, in no apparent respiratory distress. She is awake and communicating well with normal coherency. VITAL SIGNS: Blood pressure was 81/44 mmHg, respirations of 24, pulse of 103, temperature 97.1 degrees Fahrenheit, and O2 saturation of 91% on room air. HEENT: Atraumatic and normocephalic. Bitemporal wasting. Conjunctival pallor. Anicteric. NECK: JVP less than 5 cm. No carotid bruit. CARDIOVASCULAR SYSTEM: Normal S1 and S2. Irregularly irregular rhythm. Tachycardic. A 2/6 midsystolic murmur at the left sternal border. LUNGS: Diminished breath sounds at both bases. ABDOMEN: Distended. Positive shifting dullness and . EXTREMITIES: There is 2+ peripheral edema. No cyanosis or clubbing. LABORATORY AND DIAGNOSTIC DATA: Chest x-ray shows rotated, cannot assess the cardiac silhouette at this time, but there is no pulmonary edema. There is elevation of both hemidiaphragm with associated atelectasis. Laboratory findings, WBC 17.3, hemoglobin 9.8, hematocrit of 29.4, and platelet count 114,000. Sodium 138, potassium 4.4, chloride 102, bicarbonate 30, BUN of 66, creatinine 1.8, glucose 68, calcium 8.1, total bilirubin 2.4, direct bilirubin 1.6. Troponin I was 0.0. INR is 1.4. ASSESSMENT AND PLAN: The patient is a very unfortunate 77-year-old lady, who is seen in Cardiology consultation at request of Dr. Borja. 1. Hypotension, most likely due to combination of blood loss and intravascular volume depletion due to hepatorenal syndrome (of note, the creatinine is elevated in this patient) or could be secondary to hypovolemia. The patient is currently on normal saline. Recommend IV albumin infusion. The patient also maxed out on Levophed drip at this time. 2. Paroxysmal atrial fibrillation with rapid ventricular response as high as 150, intermingled with sinus tachycardia at rate of 105 to 110. I would like to start the patient on amiodarone drip if the blood pressure allows, however, in the meantime, I would like to give 0.25 of IV digoxin to be able to control the ventricular response. Anticoagulation therapy in this patient is contraindicated due to liver cirrhosis and coagulopathy given INR of 1.4. I would like to obtain 2D echocardiography for assessment of LV systolic function, evidence of pericardial effusion, and also evaluation for pulmonary artery pressure. 3. Liver cirrhosis, likely secondary to alcoholic liver disease with associated jaundice. 4. Portal hypertension with ascites and peripheral edema. 5. History of hypertension. 6. History of congestive heart failure. We will obtain 2D echocardiography to assess LV systolic function as well as diastolic data for hemodynamic management. A total amount of time spent in the care of this patient in the intensive care unit of [facility] discussing the plan of care with the nursing staff, primary care physician, and review of the old records was 45 minutes. I would like to thank, Dr. Borja, for allowing me to participate in the care of this patient. Amol Maldonado M.D. DR: GWYN JOB#: [id number] CC:
[2017-12-21] MEDS: Meropenem 1 GM in NS 55 ML IVPB SCH (02:48)
[2017-12-21] MEDS: D5NS 1,000 ML IV SCH (02:49)
[2017-12-21 06:48] LABS: PHOSPHORUS 3.8 MG/DL (2.5-4.9)
[2017-12-21 07:00] LABS: ALANINE AMINOTRANSFERASE 9 U/L (12-78); ALBUMIN 1.7 G/DL (3.4-5.0); ALBUMIN/GLOBULIN RATIO 0.5 (1.0-2.7); ALKALINE PHOSPHATASE 46 U/L (46-116); AMYLASE 30 U/L (25-115); ANION GAP 11 mmol/L (5-15); ASPARTATE AMINO TRANSFERASE 29 U/L (15-37); BILIRUBIN,TOTAL 2.1 MG/DL (0.2-1.0); BLOOD UREA NITROGEN 57 mg/dL (7-18); CALCIUM 7.1 MG/DL (8.5-10.1); CARBON DIOXIDE 23 MMOL/L (21-32); CHLORIDE 109 MMOL/L (98-107); CREATININE 1.6 MG/DL (0.55-1.30); POTASSIUM 3.4 MMOL/L (3.5-5.1); SODIUM 143 MMOL/L (136-145)
[2017-12-21 07:02] LABS: BILIRUBIN,DIRECT 1.4 MG/DL (0.0-0.3)
[2017-12-21 07:03] LABS: INR 1.6 (0.9-1.1)
--- NOTE | 2017-12-21 08:07 | Pulmonolgy Critical Care Note ---
Critical Care - Asmt/Plan Problems: (1) Septic shock (2) Lower GI bleed (3) Acute renal failure (ARF) (4) Hepatorenal syndrome (5) Ascites (6) End stage liver disease (7) Cirrhosis of liver with ascites Respiratory: monitor respiratory rate, adjust FIO2 Cardiac: continue pressors Renal: F/U I&O, keep IV fluid, other Infectious Disease: check cultures Gastrointestinal: hold feedings Endocrine: monitor blood sugar, other - start sliding scale Neurologic: PRN Ativan Affect: PRN ativan Prophylaxis: Protonix, Heparin Time Spent (Minutes): 40 Notes Reviewed: engineering group manager Discussed with: nurses, consultants, foster care case managermanager heavy equipment - Objective Last 24 Hour Vital Signs Date Time Temp Pulse Resp B/P (MAP) Pulse Ox O2 Delivery O2 Flow Rate FiO2 12/21/17 07:30 97.9 106 12 90/45 100 Nasal Cannula 2.0 97.9 12/21/17 07:00 104 10 90/44 100 Nasal Cannula 2.0 12/21/17 06:30 104 10 85/51 100 Nasal Cannula 2.0 12/21/17 06:00 105 10 90/54 100 Nasal Cannula 2.0 12/21/17 05:30 107 13 84/50 100 Nasal Cannula 2.0 12/21/17 05:00 98 11 83/49 100 Nasal Cannula 2.0 12/21/17 04:30 108 16 95/49 100 Nasal Cannula 2.0 12/21/17 04:00 97.6 100 12 102/61 100 Nasal Cannula 2.0 97.6 12/21/17 04:00 100 12/21/17 03:30 101 12 93/55 100 Nasal Cannula 2.0 12/21/17 03:00 116 12 94/47 99 Nasal Cannula 2.0 12/21/17 03:00 107 12 82/42 100 Nasal Cannula 2.0 12/21/17 02:30 114 12 93/53 96 Nasal Cannula 2.0 12/21/17 02:30 114 12 94/47 96 Nasal Cannula 2.0 12/21/17 02:00 116 12 94/47 99 Nasal Cannula 2.0 12/21/17 01:30 117 12 99/52 99 Nasal Cannula 2.0 12/21/17 01:00 117 12 93/57 99 Nasal Cannula 2.0 12/21/17 00:30 118 12 94/54 100 Nasal Cannula 2.0 12/21/17 00:00 116 12/21/17 00:00 97.8 116 15 93/53 99 Nasal Cannula 2.0 97.8 12/20/17 23:30 120 14 90/50 99 Nasal Cannula 2.0 18 23:01 82/52 418 23:00 121 19 100/47 99 Nasal Cannula 2.0 12/20/17 22:30 125 14 82/52 99 Nasal Cannula 2.0 12/20/17 22:00 125 13 90/62 99 Nasal Cannula 2.0 12/20/17 21:30 133 17 87/50 99 Nasal Cannula 2.0 12/20/17 21:00 133 17 85/56 99 Nasal Cannula 2.0 12/20/17 20:30 139 18 88/43 99 Nasal Cannula 2.0 12/20/17 20:00 97.6 139 18 88/43 99 Nasal Cannula 2.0 97.6 12/20/17 20:00 139 12/20/17 19:52 155 12/20/17 19:30 96 Nasal Cannula 2.0 28 12/20/17 19:30 144 18 86/53 95 Nasal Cannula 2.0 12/20/17 19:30 Nasal Cannula 2.0 28 12/20/17 19:00 150 19 88/52 99 Nasal Cannula 2.0 12/20/17 18:30 142 19 88/52 96 Nasal Cannula 2.0 18 18:06 89/48 12/20/17 18:00 97.0 142 18 91/42 99 Nasal Cannula 2.0 97.0 12/20/17 17:30 140 18 90/45 99 Nasal Cannula 2.0 12/20/17 17:00 139 16 84/54 99 Nasal Cannula 2.0 18 16:30 147 16 82/55 100 Nasal Cannula 2.0 12/20/17 16:00 138 12/20/17 16:00 97.0 144 17 83/47 100 Nasal Cannula 2.0 97.0 12/20/17 15:30 150 17 73/42 92 Nasal Cannula 2.0 18 15:00 146 17 79/47 93 Nasal Cannula 2.0 12/20/17 14:30 124 17 91/50 95 Nasal Cannula 2.0 12/20/17 14:00 105 18 91/46 96 Nasal Cannula 2.0 12/20/17 13:30 98 15 91/42 96 Nasal Cannula 2.0 12/20/17 13:00 99 14 91/42 99 Nasal Cannula 2.0 12/20/17 12:30 102 15 86/42 96 Nasal Cannula 2.0 12/20/17 12:00 102 12/20/17 12:00 97.2 107 14 74/42 98 Nasal Cannula 2.0 97.2 12/20/17 11:30 100 14 83/39 96 Nasal Cannula 2.0 12/20/17 11:00 100 11 85/41 95 Nasal Cannula 2.0 12/20/17 10:30 99 14 82/47 99 Nasal Cannula 2.0 12/20/17 10:00 97 20 82/47 97 Nasal Cannula 2.0 12/20/17 09:30 100 16 83/53 100 Nasal Cannula 2.0 12/20/17 09:00 105 20 91/48 100 Nasal Cannula 2.0 12/20/17 08:30 103 18 84/44 100 Nasal Cannula 2.0 12/20/17 08:26 81/45 12/20/17 08:19 95 Nasal Cannula 2.0 28 12/20/17 08:19 Nasal Cannula 2.0 28 Status: somnolent Condition: critical HEENT: atraumatic Neck: full ROM Lungs: clear Heart: HR/BP unstable Abdomen: distended Extremities: no C/C/E Micro: Microbiology Date/Time Source Procedure Growth Status 12/20/17 16:30 Urine,Clean Catch Urine Culture - Preliminary NO GROWTH Resulted Critical Care - Subjective ROS Limited/Unobtainable: No ICU Day: 2 Condition: critical, grave EKG Rhythm: Sinus Rhythm FI02: 28 I&O: Intake and Output 12/20/17 12/21/17 19:00 07:00 Intake Total 1979.50 ml 1873.75 ml Output Total 2055 ml 290 ml Balance -75.50 ml 1583.75 ml Intake IV Total 1742.50 ml 1873.75 ml Blood Product 237 ml Output Urine Total 2055 ml 290 ml CXR: no change, RML atelectasis Labs: Laboratory Tests Test 12/20/17 16:30 12/21/17 05:35 Urine Eosinophils None seen Urine Random Creatinine Pending Urine Random Microalbumin Pending Urine Random Total Protein 89 MG/DL (< 11.9) H Urine Random Sodium 15 mmol/L (20-110) L Urine Creatinine 51.1 MG/DL (30.0-125.0) Urine Microalbumin/Creatinine Ratio Pending White Blood Count Pending Red Blood Count Pending Hemoglobin Pending Hematocrit Pending Mean Corpuscular Volume Pending Mean Corpuscular Hemoglobin Pending Mean Corpuscular Hemoglobin Concent Pending Red Cell Distribution Width Pending Platelet Count Pending Mean Platelet Volume Pending Neutrophils (%) (Auto) Pending Lymphocytes (%) (Auto) Pending Monocytes (%) (Auto) Pending Eosinophils (%) (Auto) Pending Basophils (%) (Auto) Pending Prothrombin Time 17.0 SEC (9.30-11.50) H Prothromb Time International Ratio 1.6 (0.9-1.1) H Activated Partial Thromboplast Time 61 SEC (23-33) H Sodium Level 143 MMOL/L (136-145) Potassium Level 3.4 MMOL/L (3.5-5.1) L Chloride Level 109 MMOL/L (98-107) H Carbon Dioxide Level 23 MMOL/L (21-32) Anion Gap 11 mmol/L (5-15) Blood Urea Nitrogen 57 mg/dL (7-18) H Creatinine 1.6 MG/DL (0.55-1.30) H Estimat Glomerular Filtration Rate mL/min (>60) Glucose Level 251 MG/DL (74-106) #H Calcium Level 7.1 MG/DL (8.5-10.1) L Phosphorus Level 3.8 MG/DL (2.5-4.9) Magnesium Level 1.8 MG/DL (1.8-2.4) Total Bilirubin 2.1 MG/DL (0.2-1.0) H Direct Bilirubin 1.4 MG/DL (0.0-0.3) H Aspartate Amino Transf (AST/SGOT) 29 U/L (15-37) Alanine Aminotransferase (ALT/SGPT) 9 U/L (12-78) L Alkaline Phosphatase 46 U/L (46-116) Total Protein 5.3 G/DL (6.4-8.2) L Albumin 1.7 G/DL (3.4-5.0) L Globulin 3.6 g/dL Albumin/Globulin Ratio 0.5 (1.0-2.7) L Amylase Level 30 U/L (25-115) Lipase 273 U/L (73-393) Jeni Cabrera MD Dec 21, 2017 08:07
[2017-12-21] MEDS: Midodrine 10mg tab ORAL SCH (08:41)
[2017-12-21] MEDS: Pantoprazole Inj IVP SCH (08:41)
--- NOTE | 2017-12-21 09:14 | General Progress Note ---
Subjective Constitutional: Reports: weakness Allergies: Coded Allergies: ASPIRIN (Verified Allergy, Unknown, 10/11/14) All Systems: reviewed and negative except above Subjective o2nc calm in bed in icu Objective Last 24 Hour Vital Signs Date Time Temp Pulse Resp B/P (MAP) Pulse Ox O2 Delivery O2 Flow Rate FiO2 12/21/17 09:00 86/49 12/21/17 08:30 107 10 86/49 100 Nasal Cannula 2.0 12/21/17 08:00 105 10 90/51 100 Nasal Cannula 2.0 12/21/17 08:00 108 12/21/17 07:30 97.9 106 12 90/45 100 Nasal Cannula 2.0 97.9 12/21/17 07:00 104 10 90/44 100 Nasal Cannula 2.0 12/21/17 06:30 104 10 85/51 100 Nasal Cannula 2.0 12/21/17 06:00 105 10 90/54 100 Nasal Cannula 2.0 12/21/17 05:30 107 13 84/50 100 Nasal Cannula 2.0 12/21/17 05:00 98 11 83/49 100 Nasal Cannula 2.0 12/21/17 04:30 108 16 95/49 100 Nasal Cannula 2.0 12/21/17 04:00 97.6 100 12 102/61 100 Nasal Cannula 2.0 97.6 12/21/17 04:00 100 12/21/17 03:30 101 12 93/55 100 Nasal Cannula 2.0 12/21/17 03:00 116 12 94/47 99 Nasal Cannula 2.0 12/21/17 03:00 107 12 82/42 100 Nasal Cannula 2.0 12/21/17 02:30 114 12 93/53 96 Nasal Cannula 2.0 12/21/17 02:30 114 12 94/47 96 Nasal Cannula 2.0 12/21/17 02:00 116 12 94/47 99 Nasal Cannula 2.0 12/21/17 01:30 117 12 99/52 99 Nasal Cannula 2.0 12/21/17 01:00 117 12 93/57 99 Nasal Cannula 2.0 12/21/17 00:30 118 12 94/54 100 Nasal Cannula 2.0 12/21/17 00:00 116 12/21/17 00:00 97.8 116 15 93/53 99 Nasal Cannula 2.0 97.8 4/20/18 23:30 120 14 90/50 99 Nasal Cannula 2.0 18 23:01 82/52 418 23:00 121 19 100/47 99 Nasal Cannula 2.0 18 22:30 125 14 82/52 99 Nasal Cannula 2.0 18 22:00 125 13 90/62 99 Nasal Cannula 2.0 18 21:30 133 17 87/50 99 Nasal Cannula 2.0 18 21:00 133 17 85/56 99 Nasal Cannula 2.0 18 20:30 139 18 88/43 99 Nasal Cannula 2.0 18 20:00 97.6 139 18 88/43 99 Nasal Cannula 2.0 97.6 12/20/17 20:00 139 18 19:52 155 18 19:30 96 Nasal Cannula 2.0 28 12/20/17 19:30 144 18 86/53 95 Nasal Cannula 2.0 12/20/17 19:30 Nasal Cannula 2.0 28 12/20/17 19:00 150 19 88/52 99 Nasal Cannula 2.0 18 18:30 142 19 88/52 96 Nasal Cannula 2.0 18 18:06 89/48 18 18:00 97.0 142 18 91/42 99 Nasal Cannula 2.0 97.0 18 17:30 140 18 90/45 99 Nasal Cannula 2.0 18 17:00 139 16 84/54 99 Nasal Cannula 2.0 18 16:30 147 16 82/55 100 Nasal Cannula 2.0 18 16:00 138 18 16:00 97.0 144 17 83/47 100 Nasal Cannula 2.0 97.0 18 15:30 150 17 73/42 92 Nasal Cannula 2.0 18 15:00 146 17 79/47 93 Nasal Cannula 2.0 18 14:30 124 17 91/50 95 Nasal Cannula 2.0 18 14:00 105 18 91/46 96 Nasal Cannula 2.0 18 13:30 98 15 91/42 96 Nasal Cannula 2.0 12/20/17 13:00 99 14 91/42 99 Nasal Cannula 2.0 12/20/17 12:30 102 15 86/42 96 Nasal Cannula 2.0 12/20/17 12:00 102 12/20/17 12:00 97.2 107 14 74/42 98 Nasal Cannula 2.0 97.2 12/20/17 11:30 100 14 83/39 96 Nasal Cannula 2.0 12/20/17 11:00 100 11 85/41 95 Nasal Cannula 2.0 12/20/17 10:30 99 14 82/47 99 Nasal Cannula 2.0 12/20/17 10:00 97 20 82/47 97 Nasal Cannula 2.0 12/20/17 09:30 100 16 83/53 100 Nasal Cannula 2.0 Intake and Output 12/20/17 12/21/17 19:00 07:00 Intake Total 1979.50 ml 1873.75 ml Output Total 2055 ml 290 ml Balance -75.50 ml 1583.75 ml Intake IV Total 1742.50 ml 1873.75 ml Blood Product 237 ml Output Urine Total 2055 ml 290 ml Laboratory Tests 12/20/17 16:30: Urine Eosinophils None seen, Urine Random Creatinine [Pending], Urine Random Microalbumin [Pending], Urine Random Total Protein 89H, Urine Random Sodium 15L , Urine Creatinine 51.1, Urine Microalbumin/Creatinine Ratio [Pending] 12/21/17 05:35: White Blood Count [Pending], Red Blood Count [Pending], Hemoglobin [Pending], Hematocrit [Pending], Mean Corpuscular Volume [Pending], Mean Corpuscular Hemoglobin [Pending], Mean Corpuscular Hemoglobin Concent [Pending], Red Cell Distribution Width [Pending], Platelet Count [Pending], Mean Platelet Volume [ Pending], Neutrophils (%) (Auto) [Pending], Lymphocytes (%) (Auto) [Pending], Monocytes (%) (Auto) [Pending], Eosinophils (%) (Auto) [Pending], Basophils (%) (Auto) [Pending], Prothrombin Time 17.0H, Prothromb Time International Ratio 1.6H, Activated Partial Thromboplast Time 61H, Sodium Level 143, Potassium Level 3.4L, Chloride Level 109H, Carbon Dioxide Level 23, Anion Gap 11, Blood Urea Nitrogen 57H, Creatinine 1.6H, Estimat Glomerular Filtration Rate , Glucose Level 251#H, Calcium Level 7.1L, Phosphorus Level 3.8, Magnesium Level 1.8, Total Bilirubin 2.1H, Direct Bilirubin 1.4H, Aspartate Amino Transf (AST/ SGOT) 29, Alanine Aminotransferase (ALT/SGPT) 9L, Alkaline Phosphatase 46, Total Protein 5.3L, Albumin 1.7L, Globulin 3.6, Albumin/Globulin Ratio 0.5L, Amylase Level 30, Lipase 273 Height (Feet): 4 Weight (Pounds): 135 FANY DALE Dec 21, 2017 09:14
[2017-12-21 09:25] LABS: HEMATOCRIT 21.2 % (37.0-47.0); MEAN CORPUSCULAR VOLUME 79 FL (80-99); RED BLOOD COUNT 2.68 M/UL (4.20-5.40); RED CELL DISTRIBUTION WIDTH 14.9 % (11.6-14.8)
--- NOTE | 2017-12-21 09:49 | General Progress Note ---
Progress Note Progress Note I met patient's daughter at the bed site. She agreed with DNR/DNI and stopping the drips. She knows that she might pass away, if we stop the levophed drip. Pt has multiorgan failure, anuric, on maxed dose of levophed with borderline BP. She will be transferred to Med/surg in a private room. Jeni Cabrera MD Dec 21, 2017 09:49
[2017-12-21 09:52] LABS: HEMOGLOBIN 6.9 G/DL (12.0-16.0)
[2017-12-21 10:29] LABS: PLATELET COUNT 38 K/UL (150-450)
[2017-12-21] MEDS ORDERED: Phytonadione 10 mg/mL 1ml amp SUBQ ONE (10:30)
--- NOTE | 2017-12-21 10:31 | General Progress Note ---
Assessment/Plan Assessment/Plan GI CONSULT Dictated Agree with comfort measures Will see PRN Thank you Michael Vasquez MD Subjective Allergies: Coded Allergies: ASPIRIN (Verified Allergy, Unknown, 10/11/14) Objective Last 24 Hour Vital Signs Date Time Temp Pulse Resp B/P (MAP) Pulse Ox O2 Delivery O2 Flow Rate FiO2 12/21/17 09:00 86/49 12/21/17 08:30 107 10 86/49 100 Nasal Cannula 2.0 12/21/17 08:00 105 10 90/51 100 Nasal Cannula 2.0 12/21/17 08:00 108 12/21/17 07:30 97.9 106 12 90/45 100 Nasal Cannula 2.0 97.9 12/21/17 07:00 104 10 90/44 100 Nasal Cannula 2.0 12/21/17 06:30 104 10 85/51 100 Nasal Cannula 2.0 12/21/17 06:00 105 10 90/54 100 Nasal Cannula 2.0 12/21/17 05:30 107 13 84/50 100 Nasal Cannula 2.0 12/21/17 05:00 98 11 83/49 100 Nasal Cannula 2.0 12/21/17 04:30 108 16 95/49 100 Nasal Cannula 2.0 12/21/17 04:00 97.6 100 12 102/61 100 Nasal Cannula 2.0 97.6 12/21/17 04:00 100 12/21/17 03:30 101 12 93/55 100 Nasal Cannula 2.0 12/21/17 03:00 116 12 94/47 99 Nasal Cannula 2.0 12/21/17 03:00 107 12 82/42 100 Nasal Cannula 2.0 12/21/17 02:30 114 12 93/53 96 Nasal Cannula 2.0 12/21/17 02:30 114 12 94/47 96 Nasal Cannula 2.0 12/21/17 02:00 116 12 94/47 99 Nasal Cannula 2.0 12/21/17 01:30 117 12 99/52 99 Nasal Cannula 2.0 12/21/17 01:00 117 12 93/57 99 Nasal Cannula 2.0 12/21/17 00:30 118 12 94/54 100 Nasal Cannula 2.0 12/21/17 00:00 116 12/21/17 00:00 97.8 116 15 93/53 99 Nasal Cannula 2.0 97.8 18 23:30 120 14 90/50 99 Nasal Cannula 2.0 18 23:01 82/52 418 23:00 121 19 100/47 99 Nasal Cannula 2.0 18 22:30 125 14 82/52 99 Nasal Cannula 2.0 18 22:00 125 13 90/62 99 Nasal Cannula 2.0 18 21:30 133 17 87/50 99 Nasal Cannula 2.0 18 21:00 133 17 85/56 99 Nasal Cannula 2.0 18 20:30 139 18 88/43 99 Nasal Cannula 2.0 12/20/17 20:00 97.6 139 18 88/43 99 Nasal Cannula 2.0 97.6 12/20/17 20:00 139 18 19:52 155 12/20/17 19:30 96 Nasal Cannula 2.0 28 12/20/17 19:30 144 18 86/53 95 Nasal Cannula 2.0 12/20/17 19:30 Nasal Cannula 2.0 28 12/20/17 19:00 150 19 88/52 99 Nasal Cannula 2.0 18 18:30 142 19 88/52 96 Nasal Cannula 2.0 18 18:06 89/48 18 18:00 97.0 142 18 91/42 99 Nasal Cannula 2.0 97.0 12/20/17 17:30 140 18 90/45 99 Nasal Cannula 2.0 18 17:00 139 16 84/54 99 Nasal Cannula 2.0 18 16:30 147 16 82/55 100 Nasal Cannula 2.0 18 16:00 138 18 16:00 97.0 144 17 83/47 100 Nasal Cannula 2.0 97.0 18 15:30 150 17 73/42 92 Nasal Cannula 2.0 18 15:00 146 17 79/47 93 Nasal Cannula 2.0 18 14:30 124 17 91/50 95 Nasal Cannula 2.0 18 14:00 105 18 91/46 96 Nasal Cannula 2.0 12/20/17 13:30 98 15 91/42 96 Nasal Cannula 2.0 4/20/18 13:00 99 14 91/42 99 Nasal Cannula 2.0 12/20/17 12:30 102 15 86/42 96 Nasal Cannula 2.0 12/20/17 12:00 102 12/20/17 12:00 97.2 107 14 74/42 98 Nasal Cannula 2.0 97.2 12/20/17 11:30 100 14 83/39 96 Nasal Cannula 2.0 12/20/17 11:00 100 11 85/41 95 Nasal Cannula 2.0 Intake and Output 12/20/17 12/21/17 19:00 07:00 Intake Total 1979.50 ml 1873.75 ml Output Total 2055 ml 290 ml Balance -75.50 ml 1583.75 ml Intake IV Total 1742.50 ml 1873.75 ml Blood Product 237 ml Output Urine Total 2055 ml 290 ml Laboratory Tests 12/20/17 16:30: Urine Eosinophils None seen, Urine Random Creatinine [Pending], Urine Random Microalbumin [Pending], Urine Random Total Protein 89H, Urine Random Sodium 15L , Urine Creatinine 51.1, Urine Microalbumin/Creatinine Ratio [Pending] 12/21/17 05:35: White Blood Count 16.0H, Red Blood Count 2.68L, Hemoglobin 6.9*L, Hematocrit 21.2L, Mean Corpuscular Volume 79L, Mean Corpuscular Hemoglobin 25.9L, Mean Corpuscular Hemoglobin Concent 32.7, Red Cell Distribution Width 14.9H, Platelet Count 38#L, Mean Platelet Volume 15.2H, Neutrophils (%) (Auto) , Lymphocytes (%) (Auto) , Monocytes (%) (Auto) , Eosinophils (%) (Auto) , Basophils (%) (Auto) , Differential Total Cells Counted 100, Neutrophils % ( Manual) 93H, Lymphocytes % (Manual) 1L, Monocytes % (Manual) 6, Eosinophils % ( Manual) 0, Basophils % (Manual) 0, Band Neutrophils 0, Platelet Estimate DecreasedL, Platelet Morphology Normal, Hypochromasia 4+, Anisocytosis 1+, Microcytosis 1+, Prothrombin Time 17.0H, Prothromb Time International Ratio 1.6H , Activated Partial Thromboplast Time 61H, Sodium Level 143, Potassium Level 3.4L, Chloride Level 109H, Carbon Dioxide Level 23, Anion Gap 11, Blood Urea Nitrogen 57H, Creatinine 1.6H, Estimat Glomerular Filtration Rate , Glucose Level 251#H, Calcium Level 7.1L, Phosphorus Level 3.8, Magnesium Level 1.8, Total Bilirubin 2.1H, Direct Bilirubin 1.4H, Aspartate Amino Transf (AST/SGOT) 29, Alanine Aminotransferase (ALT/SGPT) 9L, Alkaline Phosphatase 46, Total Protein 5.3L, Albumin 1.7L, Globulin 3.6, Albumin/Globulin Ratio 0.5L, Amylase Level 30, Lipase 273 Height (Feet): 4 Weight (Pounds): 135 MICHAEL VASQUEZ Dec 21, 2017 10:31
[2017-12-21] MEDS ORDERED: Rate Change Narcotic Drip MISC PRN (11:00)
[2017-12-21] MEDS ORDERED: PCA Morphine 1mg/ml 30 ML IV PRN ×2 (11:00→11:15)
[2017-12-21] MEDS ORDERED: Morphine Sulfate 4mg/ml Inj SUBQ PRN ×2 (11:00→14:00)
[2017-12-21] MEDS ORDERED: NovoLOG Insulin Flexpen SUBQ SCH (11:30)
--- NOTE | 2017-12-21 15:59 | Infectious Diseases Prog Note ---
Assessment/Plan Assessment/Plan comfort care will sign off Subjective Allergies: Coded Allergies: ASPIRIN (Verified Allergy, Unknown, 10/11/14) Subjective transferred out of ICU Objective Vital Signs Last 24 Hour Vital Signs Date Time Temp Pulse Resp B/P (MAP) Pulse Ox O2 Delivery O2 Flow Rate FiO2 12/21/17 12:00 97.3 88 20 73/55 92 97.3 12/21/17 11:00 92 15 64/30 100 Nasal Cannula 2.0 12/21/17 10:00 91 15 63/29 100 Nasal Cannula 2.0 12/21/17 09:30 106 17 61/31 99 Nasal Cannula 2.0 12/21/17 09:00 105 17 97/52 99 Nasal Cannula 2.0 12/21/17 09:00 86/49 12/21/17 08:30 107 10 86/49 100 Nasal Cannula 2.0 12/21/17 08:00 105 10 90/51 100 Nasal Cannula 2.0 12/21/17 08:00 108 12/21/17 07:30 97.9 106 12 90/45 100 Nasal Cannula 2.0 97.9 12/21/17 07:00 104 10 90/44 100 Nasal Cannula 2.0 12/21/17 06:30 104 10 85/51 100 Nasal Cannula 2.0 12/21/17 06:00 105 10 90/54 100 Nasal Cannula 2.0 12/21/17 05:30 107 13 84/50 100 Nasal Cannula 2.0 12/21/17 05:00 98 11 83/49 100 Nasal Cannula 2.0 12/21/17 04:30 108 16 95/49 100 Nasal Cannula 2.0 12/21/17 04:00 97.6 100 12 102/61 100 Nasal Cannula 2.0 97.6 12/21/17 04:00 100 12/21/17 03:30 101 12 93/55 100 Nasal Cannula 2.0 12/21/17 03:00 116 12 94/47 99 Nasal Cannula 2.0 12/21/17 03:00 107 12 82/42 100 Nasal Cannula 2.0 12/21/17 02:30 114 12 93/53 96 Nasal Cannula 2.0 12/21/17 02:30 114 12 94/47 96 Nasal Cannula 2.0 12/21/17 02:00 116 12 94/47 99 Nasal Cannula 2.0 12/21/17 01:30 117 12 99/52 99 Nasal Cannula 2.0 12/21/17 01:00 117 12 93/57 99 Nasal Cannula 2.0 12/21/17 00:30 118 12 94/54 100 Nasal Cannula 2.0 12/21/17 00:00 116 12/21/17 00:00 97.8 116 15 93/53 99 Nasal Cannula 2.0 97.8 12/20/17 23:30 120 14 90/50 99 Nasal Cannula 2.0 12/20/17 23:01 82/52 18 23:00 121 19 100/47 99 Nasal Cannula 2.0 12/20/17 22:30 125 14 82/52 99 Nasal Cannula 2.0 12/20/17 22:00 125 13 90/62 99 Nasal Cannula 2.0 12/20/17 21:30 133 17 87/50 99 Nasal Cannula 2.0 12/20/17 21:00 133 17 85/56 99 Nasal Cannula 2.0 12/20/17 20:30 139 18 88/43 99 Nasal Cannula 2.0 12/20/17 20:00 97.6 139 18 88/43 99 Nasal Cannula 2.0 97.6 12/20/17 20:00 139 12/20/17 19:52 155 12/20/17 19:30 96 Nasal Cannula 2.0 28 12/20/17 19:30 144 18 86/53 95 Nasal Cannula 2.0 12/20/17 19:30 Nasal Cannula 2.0 28 12/20/17 19:00 150 19 88/52 99 Nasal Cannula 2.0 12/20/17 18:30 142 19 88/52 96 Nasal Cannula 2.0 18 18:06 89/48 18 18:00 97.0 142 18 91/42 99 Nasal Cannula 2.0 97.0 12/20/17 17:30 140 18 90/45 99 Nasal Cannula 2.0 12/20/17 17:00 139 16 84/54 99 Nasal Cannula 2.0 18 16:30 147 16 82/55 100 Nasal Cannula 2.0 18 16:00 138 18 16:00 97.0 144 17 83/47 100 Nasal Cannula 2.0 97.0 Height (Feet): 4 Weight (Pounds): 135 Respiratory/Chest: accessory muscle use Cardiovascular: regularly irregular Abdomen: non distended Microbiology Date/Time Source Procedure Growth Status 12/19/17 23:30 Blood Blood Culture - Preliminary NO GROWTH AFTER 24 HOURS Resulted 12/19/17 23:20 Blood Blood Culture - Preliminary NO GROWTH AFTER 24 HOURS Resulted 12/20/17 16:30 Urine,Clean Catch Urine Culture - Preliminary NO GROWTH Resulted Laboratory Tests Test 12/20/17 16:30 12/21/17 05:35 Urine Eosinophils None seen Urine Random Creatinine Pending Urine Random Microalbumin Pending Urine Random Total Protein 89 MG/DL (< 11.9) H Urine Random Sodium 15 mmol/L (20-110) L Urine Creatinine 51.1 MG/DL (30.0-125.0) Urine Microalbumin/Creatinine Ratio Pending White Blood Count 16.0 K/UL (4.8-10.8) H Red Blood Count 2.68 M/UL (4.20-5.40) L Hemoglobin 6.9 G/DL (12.0-16.0) *L Hematocrit 21.2 % (37.0-47.0) L Mean Corpuscular Volume 79 FL (80-99) L Mean Corpuscular Hemoglobin 25.9 PG (27.0-31.0) L Mean Corpuscular Hemoglobin Concent 32.7 G/DL (32.0-36.0) Red Cell Distribution Width 14.9 % (11.6-14.8) H Platelet Count 38 K/UL (150-450) #L Mean Platelet Volume 15.2 FL (6.5-10.1) H Neutrophils (%) (Auto) % (45.0-75.0) Lymphocytes (%) (Auto) % (20.0-45.0) Monocytes (%) (Auto) % (1.0-10.0) Eosinophils (%) (Auto) % (0.0-3.0) Basophils (%) (Auto) % (0.0-2.0) Differential Total Cells Counted 100 Neutrophils % (Manual) 93 % (45-75) H Lymphocytes % (Manual) 1 % (20-45) L Monocytes % (Manual) 6 % (1-10) Eosinophils % (Manual) 0 % (0-3) Basophils % (Manual) 0 % (0-2) Band Neutrophils 0 % (0-8) Platelet Estimate Decreased L Platelet Morphology Normal Hypochromasia 4+ Anisocytosis 1+ Microcytosis 1+ Prothrombin Time 17.0 SEC (9.30-11.50) H Prothromb Time International Ratio 1.6 (0.9-1.1) H Activated Partial Thromboplast Time 61 SEC (23-33) H Sodium Level 143 MMOL/L (136-145) Potassium Level 3.4 MMOL/L (3.5-5.1) L Chloride Level 109 MMOL/L (98-107) H Carbon Dioxide Level 23 MMOL/L (21-32) Anion Gap 11 mmol/L (5-15) Blood Urea Nitrogen 57 mg/dL (7-18) H Creatinine 1.6 MG/DL (0.55-1.30) H Estimat Glomerular Filtration Rate mL/min (>60) Glucose Level 251 MG/DL (74-106) #H Calcium Level 7.1 MG/DL (8.5-10.1) L Phosphorus Level 3.8 MG/DL (2.5-4.9) Magnesium Level 1.8 MG/DL (1.8-2.4) Total Bilirubin 2.1 MG/DL (0.2-1.0) H Direct Bilirubin 1.4 MG/DL (0.0-0.3) H Aspartate Amino Transf (AST/SGOT) 29 U/L (15-37) Alanine Aminotransferase (ALT/SGPT) 9 U/L (12-78) L Alkaline Phosphatase 46 U/L (46-116) Total Protein 5.3 G/DL (6.4-8.2) L Albumin 1.7 G/DL (3.4-5.0) L Globulin 3.6 g/dL Albumin/Globulin Ratio 0.5 (1.0-2.7) L Amylase Level 30 U/L (25-115) Lipase 273 U/L (73-393) Current Medications Medications (Trade) Dose Ordered Sig/Derek Route PRN Reason Start Time Stop Time Status Last Admin Dose Admin Acetaminophen (Tylenol) 650 mg Q4H PRN ORAL fever 12/21/17 14:30 01/19/18 06:29 Dextrose (Dextrose 50%) 25 ml STAT PRN IV Hypoglycemia 12/22/17 08:30 01/20/18 08:29 Dextrose (Dextrose 50%) 50 ml STAT PRN IV Hypoglycemia 12/22/17 08:30 01/20/18 08:29 Diphenhydramine HCl (Benadryl) 25 mg Q6H PRN ORAL Itching/Pruritis 12/21/17 12:30 01/19/18 06:29 Miscellaneous Medication (Narcotic Drip Rate Change) 1 ea DAILY PRN MISC PER PROTOCOL 12/22/17 09:00 01/20/18 10:59 Miscellaneous Medication (Narcotic Shift Volume) 1 ea Q12HR@0700,1900 MISC 12/21/17 19:00 01/20/18 18:59 Morphine Sulfate 30 ml @ 5 mls/hr [employer] Protocol PRN IV COMFORT CARE 12/21/17 11:15 12/23/17 10:59 Morphine Sulfate (Morphine Sulfate) 4 mg Q3H PRN SUBQ Severe Breakthru Pain (>7) 12/21/17 14:00 12/28/17 10:59 Ondansetron HCl (Zofran) 4 mg Q6H PRN IVP Nausea & Vomiting 12/21/17 12:30 01/19/18 06:29 Román Ching MD Dec 21, 2017 15:59
--- NOTE | 2017-12-21 17:45 | Consultation ---
DATE OF CONSULTATION: 12/21/2017 GASTROLOGY CONSULTATION CONSULTING PHYSICIAN: Michael Vasquez M.D. CHIEF COMPLAINT: I was asked to see this patient by Dr. Dawson Borja for evaluation of cirrhosis related complications. HISTORY OF PRESENT ILLNESS: The patient is a debilitated unfortunate 77-year-old, -[place] woman, who was brought into the hospital due to multiple issues including renal failure, hypotension and shock. The patient is in ICU and confused and is minimally verbal. She has multiple severe ailments including cirrhosis, ascites, renal failure, hypotension, severe anemia and other issues. The patient was actually in the comfort measures at home on the hospice level of care, but because of her change in status, the family had a change in heart and upgraded her back to Full Code and sent her to the hospital. This patient was seen earlier today at the request of primary physician and an evaluation has been made of her overall health. However since then apparently a lot of discussions are held with the patient's family and the decision was made to perhaps to proceed back to comfort measures per previous plans. PAST MEDICAL HISTORY: History of hypertension, end-stage liver disease, cirrhosis, ascites, malnutrition, azotemia, hypotension, and anemia. ALLERGIES: Aspirin. FAMILY HISTORY: Not available. SOCIAL HISTORY: The patient was on home hospice for the past 2 years because of end-stage cirrhosis. REVIEW OF SYSTEMS: Otherwise, negative. PHYSICAL EXAMINATION: GENERAL: Debilitated -[place] woman, seen in ICU. HEENT: Normocephalic and atraumatic. There was temporal wasting. NECK: Supple. CHEST: Clear to auscultation. CARDIOVASCULAR: Revealed a regular rate. ABDOMEN: Distended with obvious ascites. EXTREMITIES: Revealed 2+ edema. NEUROLOGIC: Notable for delirium. LABORATORY AND DIAGNOSTIC DATA: Laboratory data were noted. ASSESSMENT: This patient is in very poor health with multiorgan dysfunction. Most significantly she has end-stage liver disease with ascites and encephalopathy and now with coagulopathy and renal failure. With her current state of shock and hypotension, her prognosis for any recovery is essentially zero and therefore comfort measures would indeed be the most appropriate step. Should there have been need for a more aggressive approach, then she should be placed on proton-pump inhibitor and have paracentesis and get a blood transfusion and be placed on broad-spectrum antibiotics and pressors and IV fluids, however, given her dismal prognosis, these measures would be considered heroic and not likely affective and therefore, I agree with the current management per the family discussion to revert back to comfort measures. RECOMMENDATIONS: Per above discussion and per orders written in the chart. Thank you for asking me to participate in the care of this patient. Michael Vasquez M.D. DR: TAMMY JOB#: [id number] CC: DESTINY
[2017-12-21] MEDS ORDERED: Narcotic Shift Volume MISC SCH (19:00)
[2017-12-21] MEDS: Narcotic Shift Volume MISC SCH (19:26)
--- NOTE | 2017-12-21 21:04 | Nephrology Progress Note ---
Assessment/Plan Assessment 1. Acute renal failure. The etiology of acute renal failure is acute tubular necrosis due to unstable hemodynamics and hypotension versus hepatorenal syndrome. 2. Hypocalcemia. 3. Severe malnutrition with albumin of 1.1. 4. Elevated white blood cell count, rule out SBP 5. Gastrointestinal bleeding. 6. Hypotension. Plan PLAN continue diuretic comfort care monitoring electrolyte replace electrolyte as need it Subjective Constitutional: Reports: no symptoms HEENT: Reports: no symptoms Genitourinary: Reports: no symptoms Neurologic/Psychiatric: Reports: no symptoms Subjective transferred out of ICU Objective Objective Last 24 Hour Vital Signs Date Time Temp Pulse Resp B/P (MAP) Pulse Ox O2 Delivery O2 Flow Rate FiO2 12/21/17 20:20 Nasal Cannula 2.0 28 12/21/17 20:20 94 Nasal Cannula 2.0 28 12/21/17 12:00 97.3 88 20 73/55 92 97.3 12/21/17 11:00 92 15 64/30 100 Nasal Cannula 2.0 12/21/17 10:00 91 15 63/29 100 Nasal Cannula 2.0 12/21/17 09:30 106 17 61/31 99 Nasal Cannula 2.0 12/21/17 09:00 105 17 97/52 99 Nasal Cannula 2.0 12/21/17 09:00 86/49 12/21/17 08:30 107 10 86/49 100 Nasal Cannula 2.0 12/21/17 08:00 105 10 90/51 100 Nasal Cannula 2.0 12/21/17 08:00 108 12/21/17 07:30 97.9 106 12 90/45 100 Nasal Cannula 2.0 97.9 12/21/17 07:00 104 10 90/44 100 Nasal Cannula 2.0 12/21/17 06:30 104 10 85/51 100 Nasal Cannula 2.0 12/21/17 06:00 105 10 90/54 100 Nasal Cannula 2.0 12/21/17 05:30 107 13 84/50 100 Nasal Cannula 2.0 12/21/17 05:00 98 11 83/49 100 Nasal Cannula 2.0 12/21/17 04:30 108 16 95/49 100 Nasal Cannula 2.0 12/21/17 04:00 97.6 100 12 102/61 100 Nasal Cannula 2.0 97.6 12/21/17 04:00 100 12/21/17 03:30 101 12 93/55 100 Nasal Cannula 2.0 12/21/17 03:00 116 12 94/47 99 Nasal Cannula 2.0 12/21/17 03:00 107 12 82/42 100 Nasal Cannula 2.0 12/21/17 02:30 114 12 93/53 96 Nasal Cannula 2.0 12/21/17 02:30 114 12 94/47 96 Nasal Cannula 2.0 12/21/17 02:00 116 12 94/47 99 Nasal Cannula 2.0 12/21/17 01:30 117 12 99/52 99 Nasal Cannula 2.0 12/21/17 01:00 117 12 93/57 99 Nasal Cannula 2.0 12/21/17 00:30 118 12 94/54 100 Nasal Cannula 2.0 12/21/17 00:00 116 12/21/17 00:00 97.8 116 15 93/53 99 Nasal Cannula 2.0 97.8 12/20/17 23:30 120 14 90/50 99 Nasal Cannula 2.0 12/20/17 23:01 82/52 12/20/17 23:00 121 19 100/47 99 Nasal Cannula 2.0 12/20/17 22:30 125 14 82/52 99 Nasal Cannula 2.0 12/20/17 22:00 125 13 90/62 99 Nasal Cannula 2.0 12/20/17 21:30 133 17 87/50 99 Nasal Cannula 2.0 Intake and Output 12/20/17 12/21/17 19:00 07:00 Intake Total 1979.50 ml 1930.00 ml Output Total 2055 ml 290 ml Balance -75.50 ml 1640.00 ml Intake IV Total 1742.50 ml 1930.00 ml Blood Product 237 ml Output Urine Total 2055 ml 290 ml Laboratory Tests 12/21/17 05:35: White Blood Count 16.0H, Red Blood Count 2.68L, Hemoglobin 6.9*L, Hematocrit 21.2L, Mean Corpuscular Volume 79L, Mean Corpuscular Hemoglobin 25.9L, Mean Corpuscular Hemoglobin Concent 32.7, Red Cell Distribution Width 14.9H, Platelet Count 38#L, Mean Platelet Volume 15.2H, Neutrophils (%) (Auto) , Lymphocytes (%) (Auto) , Monocytes (%) (Auto) , Eosinophils (%) (Auto) , Basophils (%) (Auto) , Differential Total Cells Counted 100, Neutrophils % ( Manual) 93H, Lymphocytes % (Manual) 1L, Monocytes % (Manual) 6, Eosinophils % ( Manual) 0, Basophils % (Manual) 0, Band Neutrophils 0, Platelet Estimate DecreasedL, Platelet Morphology Normal, Hypochromasia 4+, Anisocytosis 1+, Microcytosis 1+, Prothrombin Time 17.0H, Prothromb Time International Ratio 1.6H , Activated Partial Thromboplast Time 61H, Sodium Level 143, Potassium Level 3.4L, Chloride Level 109H, Carbon Dioxide Level 23, Anion Gap 11, Blood Urea Nitrogen 57H, Creatinine 1.6H, Estimat Glomerular Filtration Rate , Glucose Level 251#H, Calcium Level 7.1L, Phosphorus Level 3.8, Magnesium Level 1.8, Total Bilirubin 2.1H, Direct Bilirubin 1.4H, Aspartate Amino Transf (AST/SGOT) 29, Alanine Aminotransferase (ALT/SGPT) 9L, Alkaline Phosphatase 46, Total Protein 5.3L, Albumin 1.7L, Globulin 3.6, Albumin/Globulin Ratio 0.5L, Amylase Level 30, Lipase 273 Height (Feet): 4 Weight (Pounds): 135 Objective HEAD AND NECK: Bitemporal wasting. Sclerae are icteric. Extraocular movement intact. Pupils are reactive to light and accommodation. LUNGS: Decreased breathing sound on both sides. CARDIAC: Tachy. S1 and S2. Positive systolic murmur. ABDOMEN: Distended. Positive shifting dullness. Positive ascites. EXTREMITIES: A 3 to 4+ edema. No clubbing. No cyanosis. TAMAR DOLL Dec 21, 2017 21:04
[2017-12-22] VITALS: BP 78/41
[2017-12-22 04:00] VITALS: BP 77/35
[2017-12-22] MEDS ORDERED: D5NS 1,000 ML IV SCH (06:30)
[2017-12-22 06:54] LABS: INR 1.6 (0.9-1.1)
[2017-12-22] MEDS: Narcotic Shift Volume MISC SCH ×2 (07:05→19:25)
[2017-12-22 07:21] LABS: ALANINE AMINOTRANSFERASE 11 U/L (12-78); ALBUMIN 1.4 G/DL (3.4-5.0); ALBUMIN/GLOBULIN RATIO 0.4 (1.0-2.7); ALKALINE PHOSPHATASE 48 U/L (46-116); ANION GAP 9 mmol/L (5-15); ASPARTATE AMINO TRANSFERASE 34 U/L (15-37); BILIRUBIN,TOTAL 1.6 MG/DL (0.2-1.0); BLOOD UREA NITROGEN 57 mg/dL (7-18); CALCIUM 6.9 MG/DL (8.5-10.1); CARBON DIOXIDE 24 MMOL/L (21-32); CHLORIDE 112 MMOL/L (98-107); CREATININE 1.7 MG/DL (0.55-1.30); POTASSIUM 3.4 MMOL/L (3.5-5.1); SODIUM 145 MMOL/L (136-145)
[2017-12-22 07:24] LABS: BILIRUBIN,DIRECT 1.1 MG/DL (0.0-0.3)
[2017-12-22 07:25] LABS: HEMATOCRIT 20.8 % (37.0-47.0); MEAN CORPUSCULAR VOLUME 80 FL (80-99); PLATELET COUNT 25 K/UL (150-450); RED BLOOD COUNT 2.61 M/UL (4.20-5.40); RED CELL DISTRIBUTION WIDTH 15.5 % (11.6-14.8); WHITE BLOOD COUNT 13.8 K/UL (4.8-10.8)
[2017-12-22 07:31] LABS: AMMONIA 59 umol/L (11-32)
[2017-12-22 07:51] LABS: HEMOGLOBIN 6.8 G/DL (12.0-16.0)
[2017-12-22 08:00] VITALS: BP 79/42
--- NOTE | 2017-12-22 08:16 | General Progress Note ---
Assessment/Plan Problem List: (1) Shock ICD Codes: R57.9 - Shock, unspecified SNOMED: 10365792 (2) Malnutrition ICD Codes: E46 - Unspecified protein-calorie malnutrition SNOMED: 91805398 (3) Sepsis ICD Codes: A41.9 - Sepsis, unspecified organism SNOMED: 17734212 (4) HTN (hypertension) ICD Codes: I10 - HTN (hypertension) SNOMED: 62037617 (5) Pneumonia ICD Codes: J18.9 - Pneumonia, unspecified organism SNOMED: 837083301 Qualifiers: Qualified Codes: J18.1 - Lobar pneumonia, unspecified organism (6) Anemia ICD Codes: D64.9 - Anemia, unspecified SNOMED: 556315386 Qualifiers: Qualified Codes: D64.9 - Anemia, unspecified (7) UTI (urinary tract infection) ICD Codes: N39.0 - Urinary tract infection, site not specified SNOMED: 42046877 (8) Acute renal failure (ARF) ICD Codes: N17.9 - Acute kidney failure, unspecified SNOMED: 59293078, 853591623 Qualifiers: Qualified Codes: N17.9 - Acute kidney failure, unspecified (9) Cirrhosis ICD Codes: K74.60 - Hepatic cirrhosis SNOMED: 27230222 Status: unchanged Assessment/Plan 02 pulm tx pain control comfort measures Subjective Allergies: Coded Allergies: ASPIRIN (Verified Allergy, Unknown, 10/11/14) All Systems: reviewed and negative except above Subjective o2nc calm in bed Objective Last 24 Hour Vital Signs Date Time Temp Pulse Resp B/P (MAP) Pulse Ox O2 Delivery O2 Flow Rate FiO2 12/22/17 04:00 97.1 79 19 77/35 94 97.1 12/22/17 04:00 Nasal Cannula 2.0 12/22/17 00:00 97.1 80 19 78/41 94 97.1 12/22/17 00:00 Nasal Cannula 2.0 12/21/17 21:00 97.1 83 19 101/51 96 97.1 12/21/17 20:20 Nasal Cannula 2.0 28 12/21/17 20:20 94 Nasal Cannula 2.0 28 12/21/17 12:00 97.3 88 20 73/55 92 97.3 12/21/17 11:00 92 15 64/30 100 Nasal Cannula 2.0 12/21/17 10:00 91 15 63/29 100 Nasal Cannula 2.0 12/21/17 09:30 106 17 61/31 99 Nasal Cannula 2.0 12/21/17 09:00 105 17 97/52 99 Nasal Cannula 2.0 12/21/17 09:00 86/49 12/21/17 08:30 107 10 86/49 100 Nasal Cannula 2.0 Intake and Output 12/21/17 12/22/17 19:00 07:00 Intake Total 286.25 ml Output Total 260 ml 100 ml Balance 26.25 ml -100 ml Intake IV Total 256.25 ml Other 30 ml Output Urine Total 260 ml 100 ml # Bowel Movements 1 Laboratory Tests 12/22/17 06:00: White Blood Count 13.8H, Red Blood Count 2.61L, Hemoglobin 6.8*L, Hematocrit 20.8L, Mean Corpuscular Volume 80, Mean Corpuscular Hemoglobin 26.1L, Mean Corpuscular Hemoglobin Concent 32.8, Red Cell Distribution Width 15.5H, Platelet Count 25L, Mean Platelet Volume 16.7H, Neutrophils (%) (Auto) , Lymphocytes (%) (Auto) , Monocytes (%) (Auto) , Eosinophils (%) (Auto) , Basophils (%) (Auto) , Differential Total Cells Counted 100, Neutrophils % ( Manual) 89H, Lymphocytes % (Manual) 4L, Monocytes % (Manual) 7, Eosinophils % ( Manual) 0, Basophils % (Manual) 0, Band Neutrophils 0, Platelet Estimate DecreasedL, Platelet Morphology Normal, Hypochromasia 1+, Anisocytosis 1+, Prothrombin Time 16.5H, Prothromb Time International Ratio 1.6H, Sodium Level 145, Potassium Level 3.4L, Chloride Level 112H, Carbon Dioxide Level 24, Anion Gap 9, Blood Urea Nitrogen 57H, Creatinine 1.7H, Estimat Glomerular Filtration Rate , Glucose Level 104#, Calcium Level 6.9L, Total Bilirubin 1.6H, Direct Bilirubin 1.1H, Aspartate Amino Transf (AST/SGOT) 34, Alanine Aminotransferase ( ALT/SGPT) 11L, Alkaline Phosphatase 48, Ammonia 59H, Total Protein 4.8L, Albumin 1.4L, Globulin 3.4, Albumin/Globulin Ratio 0.4L Height (Feet): 4 Weight (Pounds): 135 General Appearance: lethargic EENT: normal ENT inspection Neck: normal alignment Cardiovascular: normal rate Respiratory/Chest: chest wall non-tender, lungs clear, normal breath sounds Abdomen: normal bowel sounds, non tender, soft Extremities: normal inspection Edema: 1+ Arm (L), 1+ Arm (R), 1+ Leg (L), 1+ Leg (R), 1+ Pedal (L), 1+ Pedal ( R), 1+ Generalized Neurologic: responsive, motor weakness Skin: normal pigmentation, warm/dry FANY DLAE Dec 22, 2017 08:16
[2017-12-22] MEDS ORDERED: Rate Change Narcotic Drip MISC PRN (09:00)
--- NOTE | 2017-12-22 11:23 | Diagnostic Imaging Report ---
Indication: Dyspnea Technique: XRAY Chest 1v Comparison: 12/20/2017 Findings: Right internal jugular central catheter is unchanged. Cardiomediastinal silhouette is stable. Lungs are unchanged without new infiltrates. Osseous structures are stable. Impression: No significant change from 12/20/2017.
[2017-12-22 12:00] VITALS: BP 76/34
[2017-12-22 16:00] VITALS: BP 83/40
[2017-12-22 20:00] VITALS: BP 73/39
--- NOTE | 2017-12-22 21:36 | Pulmonology Progress Note ---
Assessment/Plan Problems: (1) End stage liver disease (2) Acute renal failure (ARF) (3) Bacteriuria (4) Anemia Assessment/Plan comfort care start oral feeding analgesics prn Subjective ROS Limited/Unobtainable: Yes Allergies: Coded Allergies: ASPIRIN (Verified Allergy, Unknown, 10/11/14) Objective Last 24 Hour Vital Signs Date Time Temp Pulse Resp B/P (MAP) Pulse Ox O2 Delivery O2 Flow Rate FiO2 12/22/17 20:21 Nasal Cannula 2.0 28 12/22/17 20:21 96 Nasal Cannula 2.0 28 12/22/17 20:00 95.5 88 18 73/39 98 95.5 12/22/17 16:00 97.2 84 20 83/40 95 Nasal Cannula 2.0 97.2 12/22/17 12:00 97.5 85 20 76/34 95 Nasal Cannula 2.0 97.5 12/22/17 08:00 97.4 85 21 79/42 96 Nasal Cannula 2.0 97.4 12/22/17 07:35 95 Nasal Cannula 2.0 28 12/22/17 07:35 Nasal Cannula 2.0 28 12/22/17 04:00 97.1 79 19 77/35 94 97.1 12/22/17 04:00 Nasal Cannula 2.0 12/22/17 00:00 97.1 80 19 78/41 94 97.1 12/22/17 00:00 Nasal Cannula 2.0 Intake and Output 12/21/17 12/22/17 19:00 07:00 Intake Total 286.25 ml Output Total 260 ml 100 ml Balance 26.25 ml -100 ml IV Total 256.25 ml Other 30 ml Output Urine Total 260 ml 100 ml # Bowel Movements 1 Objective Status: somnolent Condition: critical HEENT: atraumatic Neck: full ROM Lungs: clear Heart: HR/BP unstable Abdomen: distended Extremities: no C/C/E Microbiology Date/Time Source Procedure Growth Status 12/20/17 16:50 Blood Blood Culture - Preliminary NO GROWTH AFTER 24 HOURS Resulted 12/20/17 16:40 Blood Blood Culture - Preliminary NO GROWTH AFTER 24 HOURS Resulted 12/19/17 23:30 Blood Blood Culture - Preliminary NO GROWTH AFTER 48 HOURS Resulted 12/19/17 23:20 Blood Blood Culture - Preliminary NO GROWTH AFTER 48 HOURS Resulted 12/20/17 04:49 Nose MRSA Culture - Final NO METHICILLIN RESISTANT STAPH AUREUS... Complete 12/20/17 16:30 Urine,Clean Catch Urine Culture - Preliminary NO GROWTH AFTER 24 HOURS Resulted 12/20/17 04:49 Rectum VRE Culture - Final NO VANCOMYCIN RESISTANT ENTEROCOCCUS ... Complete Laboratory Tests 12/22/17 06:00: White Blood Count 13.8H, Red Blood Count 2.61L, Hemoglobin 6.8*L, Hematocrit 20.8L, Mean Corpuscular Volume 80, Mean Corpuscular Hemoglobin 26.1L, Mean Corpuscular Hemoglobin Concent 32.8, Red Cell Distribution Width 15.5H, Platelet Count 25L, Mean Platelet Volume 16.7H, Neutrophils (%) (Auto) , Lymphocytes (%) (Auto) , Monocytes (%) (Auto) , Eosinophils (%) (Auto) , Basophils (%) (Auto) , Differential Total Cells Counted 100, Neutrophils % ( Manual) 89H, Lymphocytes % (Manual) 4L, Monocytes % (Manual) 7, Eosinophils % ( Manual) 0, Basophils % (Manual) 0, Band Neutrophils 0, Platelet Estimate DecreasedL, Platelet Morphology Normal, Hypochromasia 1+, Anisocytosis 1+, Prothrombin Time 16.5H, Prothromb Time International Ratio 1.6H, Sodium Level 145, Potassium Level 3.4L, Chloride Level 112H, Carbon Dioxide Level 24, Anion Gap 9, Blood Urea Nitrogen 57H, Creatinine 1.7H, Estimat Glomerular Filtration Rate , Glucose Level 104#, Calcium Level 6.9L, Total Bilirubin 1.6H, Direct Bilirubin 1.1H, Aspartate Amino Transf (AST/SGOT) 34, Alanine Aminotransferase ( ALT/SGPT) 11L, Alkaline Phosphatase 48, Ammonia 59H, Total Protein 4.8L, Albumin 1.4L, Globulin 3.4, Albumin/Globulin Ratio 0.4L Current Medications Medications (Trade) Dose Ordered Sig/Derek Route PRN Reason Start Time Stop Time Status Last Admin Dose Admin Acetaminophen (Tylenol) 650 mg Q4H PRN ORAL fever 12/21/17 14:30 01/19/18 06:29 Chlorhexidine Gluconate (Lacy-Hex 2%) 1 applic DAILY@2100 TOPIC 12/22/17 21:00 01/21/18 20:59 Dextrose (Dextrose 50%) 25 ml STAT PRN IV Hypoglycemia 12/22/17 08:30 01/20/18 08:29 Dextrose (Dextrose 50%) 50 ml STAT PRN IV Hypoglycemia 12/22/17 08:30 01/20/18 08:29 Diphenhydramine HCl (Benadryl) 25 mg Q6H PRN ORAL Itching/Pruritis 12/21/17 12:30 01/19/18 06:29 Miscellaneous Medication (Narcotic Shift Volume) 1 ea Q12HR@0700,1900 MISC 12/21/17 19:00 01/20/18 18:59 12/22/17 19:25 Morphine Sulfate 30 ml @ 5 mls/hr [employer] Protocol PRN IV COMFORT CARE 12/21/17 11:15 12/23/17 10:59 Morphine Sulfate (Morphine Sulfate) 4 mg Q3H PRN SUBQ Severe Breakthru Pain (>7) 12/21/17 14:00 12/28/17 10:59 Ondansetron HCl (Zofran) 4 mg Q6H PRN IVP Nausea & Vomiting 12/21/17 12:30 01/19/18 06:29 Jeni Cabrera MD Dec 22, 2017 21:36
[2017-12-22] MEDS: Dyna-Hex 2% Top Sol 2oz TOPIC SCH (21:41)
[2017-12-23] VITALS: BP 78/40
[2017-12-23 04:00] VITALS: BP 81/44
[2017-12-23] MEDS: Narcotic Shift Volume MISC SCH (07:11)
[2017-12-23 08:00] VITALS: BP 80/44
--- NOTE | 2017-12-23 10:30 | Consultation ---
DATE OF CONSULTATION: 12/20/2017 INFECTIOUS DISEASE CONSULTATION CONSULTING PHYSICIAN: Román Ching M.D. REFERRING PHYSICIAN: Dawson Borja D.O. REASON FOR CONSULTATION: Evaluation of the patient for sepsis, antibiotic management. HISTORY OF PRESENT ILLNESS: The patient is a 77-year-old female with multiple medical problems as listed below, who came to the hospital with fresh rectal bleeding from home. The patient is on home hospice for the last two years and the patient is DNR/DNI. The patient was found to be hypotensive and was admitted to intensive care unit and is still on pressors. Infectious Disease consultation has been requested for further evaluation of the patient, antibiotic management. PAST MEDICAL HISTORY: 1. CHF. 2. Hypertension. 3. History of ulcer. 4. History of pancreatitis. 5. Cirrhosis. 6. Ex-alcohol abuser. MEDICATIONS: Received one dose of Zosyn in the emergency room. ALLERGIES: Aspirin. FAMILY HISTORY: Not contributing. REVIEW OF SYSTEMS: HEENT: No recent change in vision or hearing. PULMONARY: No cough. CARDIOVASCULAR: No chest pain or palpitation. GASTROINTESTINAL/ABDOMEN: As mentioned above. No abdominal pain. PHYSICAL EXAMINATION: VITAL SIGNS: Temperature 98 degrees, pulse 86, respiratory rate 18, and blood pressure 82/47 (on pressors). HEENT: No pale conjunctivae. No icterus. NECK: No lymphadenopathy. CHEST: Clear. HEART: S1 and S2. ABDOMEN: Distended with ascitic fluid. Nontender. EXTREMITIES: No cyanosis at this time. NEUROLOGIC: Awake and alert. LABORATORY AND DIAGNOSTIC DATA: White blood cells 17.9, hemoglobin 8.7, and platelets of 138,000. INR 1.4. UA unremarkable. BUN 59 and creatinine 1.7. Chest x-ray, atelectasis/consolidation. ASSESSMENT: The patient is a 77-year-old female with: 1. Hypotension (sepsis versus hemorrhagic) with leukocytosis. 2. Lower GI bleed. 3. Acute renal failure. 4. Afebrile. PLAN: 1. We will start the patient on meropenem. 2. Monitor CBC. 3. Monitor BMP. 4. Monitor cultures (blood, urine). 5. Continue pressors. 6. Blood transfusion as needed. 7. The patient may benefit from paracentesis. We will defer this to the GI team, however, clinically no evidence of peritonitis. Thank you for this consultation. I will follow the patient with you during this hospitalization. Román Ching M.D. DR: RADHA JOB#: [id number] CC:
[2017-12-23] MEDS ORDERED: D5NS 1000ml IV ONE ×2 (11:02→13:18)
[2017-12-23] MEDS ORDERED: Tubing IV Secondary IV ONE (11:02)
[2017-12-23] MEDS ORDERED: Tubing Blood Filter IV ONE (11:02)
[2017-12-23] MEDS ORDERED: NS 275ml ONE (11:02)
[2017-12-23] MEDS ORDERED: NS 500ML ONE (11:02)
[2017-12-23 12:00] VITALS: BP 87/57
--- NOTE | 2017-12-23 12:31 | General Progress Note ---
Assessment/Plan Problem List: (1) Shock ICD Codes: R57.9 - Shock, unspecified SNOMED: 92995301 (2) Malnutrition ICD Codes: E46 - Unspecified protein-calorie malnutrition SNOMED: 45250192 (3) Sepsis ICD Codes: A41.9 - Sepsis, unspecified organism SNOMED: 38565252 (4) HTN (hypertension) ICD Codes: I10 - HTN (hypertension) SNOMED: 09501966 (5) Pneumonia ICD Codes: J18.9 - Pneumonia, unspecified organism SNOMED: 144505299 Qualifiers: Qualified Codes: J18.1 - Lobar pneumonia, unspecified organism (6) Anemia ICD Codes: D64.9 - Anemia, unspecified SNOMED: 728272924 Qualifiers: Qualified Codes: D64.9 - Anemia, unspecified (7) UTI (urinary tract infection) ICD Codes: N39.0 - Urinary tract infection, site not specified SNOMED: 84974861 (8) Acute renal failure (ARF) ICD Codes: N17.9 - Acute kidney failure, unspecified SNOMED: 04422024, 578199879 Qualifiers: Qualified Codes: N17.9 - Acute kidney failure, unspecified (9) Cirrhosis ICD Codes: K74.60 - Hepatic cirrhosis SNOMED: 24174924 Status: unchanged Assessment/Plan 02 pulm tx pain control comfort measures Subjective Constitutional: Reports: weakness Allergies: Coded Allergies: ASPIRIN (Verified Allergy, Unknown, 10/11/14) All Systems: reviewed and negative except above Subjective o2nc calm in bed Objective Last 24 Hour Vital Signs Date Time Temp Pulse Resp B/P (MAP) Pulse Ox O2 Delivery O2 Flow Rate FiO2 12/23/17 12:00 97.1 93 21 87/57 99 Room Air 97.1 12/23/17 08:00 97.7 96 21 80/44 97 Nasal Cannula 2.0 97.7 12/23/17 04:00 97.0 86 18 81/44 98 97.0 12/23/17 00:00 Nasal Cannula 2.0 12/23/17 00:00 95.6 85 18 78/40 99 95.6 12/22/17 20:21 Nasal Cannula 2.0 28 12/22/17 20:21 96 Nasal Cannula 2.0 28 12/22/17 20:00 95.5 88 18 73/39 98 95.5 12/22/17 20:00 Nasal Cannula 2.0 12/22/17 16:00 97.2 84 20 83/40 95 Nasal Cannula 2.0 97.2 Intake and Output 12/22/17 12/23/17 19:00 07:00 Intake Total 200 ml Output Total 50 ml 50 ml Balance 150 ml -50 ml Intake Oral 200 ml Output Urine Total 50 ml 50 ml Height (Feet): 4 Weight (Pounds): 135 General Appearance: lethargic EENT: normal ENT inspection Neck: normal alignment Cardiovascular: normal peripheral pulses, normal rate, regular rhythm Respiratory/Chest: chest wall non-tender, lungs clear, normal breath sounds Abdomen: normal bowel sounds, non tender, soft Extremities: normal inspection Edema: 1+ Arm (L), 1+ Arm (R), 1+ Leg (L), 1+ Leg (R), 1+ Pedal (L), 1+ Pedal ( R), 1+ Generalized Neurologic: responsive, motor weakness Skin: normal pigmentation, warm/dry FANY DALE Dec 23, 2017 12:31
--- NOTE | 2017-12-23 12:47 | Pulmonology Progress Note ---
Assessment/Plan Problems: (1) End stage liver disease (2) Acute renal failure (ARF) (3) Bacteriuria (4) Anemia Assessment/Plan more awake, asymptomatic comfort care start oral feeding analgesics prn Subjective ROS Limited/Unobtainable: No Constitutional: Reports: no symptoms HEENT: Repors: no symptoms Allergies: Coded Allergies: ASPIRIN (Verified Allergy, Unknown, 10/11/14) Objective Last 24 Hour Vital Signs Date Time Temp Pulse Resp B/P (MAP) Pulse Ox O2 Delivery O2 Flow Rate FiO2 12/23/17 12:00 97.1 93 21 87/57 99 Room Air 97.1 12/23/17 08:00 97.7 96 21 80/44 97 Nasal Cannula 2.0 97.7 12/23/17 04:00 97.0 86 18 81/44 98 97.0 12/23/17 00:00 Nasal Cannula 2.0 12/23/17 00:00 95.6 85 18 78/40 99 95.6 12/22/17 20:21 Nasal Cannula 2.0 28 12/22/17 20:21 96 Nasal Cannula 2.0 28 12/22/17 20:00 95.5 88 18 73/39 98 95.5 12/22/17 20:00 Nasal Cannula 2.0 12/22/17 16:00 97.2 84 20 83/40 95 Nasal Cannula 2.0 97.2 Intake and Output 12/22/17 12/23/17 19:00 07:00 Intake Total 200 ml Output Total 50 ml 50 ml Balance 150 ml -50 ml Intake Oral 200 ml Output Urine Total 50 ml 50 ml Objective Status: somnolent Condition: critical HEENT: atraumatic Neck: full ROM Lungs: clear Heart: HR/BP unstable Abdomen: distended Extremities: no C/C/E Microbiology Date/Time Source Procedure Growth Status 12/20/17 16:50 Blood Blood Culture - Preliminary NO GROWTH AFTER 48 HOURS Resulted 12/20/17 16:40 Blood Blood Culture - Preliminary NO GROWTH AFTER 48 HOURS Resulted 12/20/17 16:30 Urine,Clean Catch Urine Culture - Final NO GROWTH AFTER 48 HOURS Complete Current Medications Medications (Trade) Dose Ordered Sig/Derek Route PRN Reason Start Time Stop Time Status Last Admin Dose Admin Acetaminophen (Tylenol) 650 mg Q4H PRN ORAL fever 12/21/17 14:30 01/19/18 06:29 Chlorhexidine Gluconate (Lacy-Hex 2%) 1 applic DAILY@2100 TOPIC 12/22/17 21:00 01/21/18 20:59 12/22/17 21:41 Dextrose (Dextrose 50%) 25 ml STAT PRN IV Hypoglycemia 12/22/17 08:30 01/20/18 08:29 Dextrose (Dextrose 50%) 50 ml STAT PRN IV Hypoglycemia 12/22/17 08:30 01/20/18 08:29 Diphenhydramine HCl (Benadryl) 25 mg Q6H PRN ORAL Itching/Pruritis 12/21/17 12:30 01/19/18 06:29 Miscellaneous Medication (Narcotic Shift Volume) 1 ea Q12HR@0700,1900 MISC 12/21/17 19:00 01/20/18 18:59 12/23/17 07:11 Morphine Sulfate (Morphine Sulfate) 4 mg Q3H PRN SUBQ Severe Breakthru Pain (>7) 12/21/17 14:00 12/28/17 10:59 Ondansetron HCl (Zofran) 4 mg Q6H PRN IVP Nausea & Vomiting 12/21/17 12:30 01/19/18 06:29 Jeni Cabrera MD Dec 23, 2017 12:47
--- NOTE | 2017-12-23 13:38 | Wound Care Consultation ---
Wound Assessment Wound Assessment #1: Wound Number: 1 Wound Present on Admission: Yes New Wound: No Status Change of Wound: No Wound Location Body Site Modif: left Wound Location Body Site: sacral Wound Type: pressure ulcer Carlos Test: Does not Carlos Pressure Ulcer Stage: Deep Tissue Injury Wound Thickness: Full Thickness Wound Length: 2.5 Wound Width: 2.5 Wound Depth: utd Percent of Wound Purple/Maroon: 100 Wound Drainage Amount: None Wound Drainage Odor: None/Absent Tissue Surrounding Wound: Intact Wound General Appearance: Reddened - maroon/purple Wound Assessment #2: Wound Number: 2 Wound Present on Admission: Yes New Wound: No Status Change of Wound: No Wound Location Body Site Modif: left Wound Location Body Site: breast fold Wound Type: other - intertrigo Carlos Test: Does not Carlos Wound Thickness: Partial Thickness Wound Length: 1.0 Wound Width: 8.5 Wound Depth: less than 0.1 Percent of Wound [place]/Red: 100 Wound Drainage Amount: None Wound Drainage Odor: None/Absent Tissue Surrounding Wound: Intact Wound General Appearance: Reddened Wound Comment #1 Left sacral area DTI pressure ulcer #2 Left breast fold intertrigo with partial thickness skin loss Recommendation -Local wound care per protocol -Keep clean and dry -Offload both heels -Heel protector on both heels -Low air loss mattress -Optimize nutrition -Assess and f/u accordingly for any changes ALY MICHAEL RN Dec 23, 2017 13:38
--- NOTE | 2017-12-23 14:30 | Consultation ---
DATE OF CONSULTATION: The patient is a 74-year-old female with sepsis, but she has altered mental status, confusion secondary to sepsis. That is why, her attending has requested daily psychiatric consultation. MENTAL STATUS EXAMINATION: This is a 74-year-old female, appearance disheveled. Attitude irritable and agitated. Affect, guarded and restricted. Intellect poor. Mood depressed, anxious. Motor activity, psychomotor agitation. Attention span is poor. Orientation x2. Speech is low volume and slurred. Thought process, disorganized. Thought content, slight paranoia. Insight and judgment is poor. DIAGNOSIS: Major depression with psychotic features. PLAN: Continue titrating up on her psychotropic meds. An 18 to 20 minutes of supportive psychotherapy provided. Seen and assessed at bedside. Chart reviewed and discussed with staff. Daily psychiatric consultation requested by her attending physician. Scarlett Fenton M.D. DR: MER JOB#: [id number] CC:
[2017-12-23 15:48] VITALS: BP 79/47
[2017-12-23 20:00] VITALS: BP 82/41
[2017-12-23] MEDS: Dyna-Hex 2% Top Sol 2oz TOPIC SCH (20:21)
[2017-12-24] VITALS: BP 95/41
[2017-12-24 04:00] VITALS: BP 77/51
[2017-12-24 08:33] VITALS: BP 80/39
[2017-12-24 12:00] VITALS: BP 77/88
--- NOTE | 2017-12-24 13:40 | General Progress Note ---
Assessment/Plan Problem List: (1) Shock ICD Codes: R57.9 - Shock, unspecified SNOMED: 78757318 (2) Malnutrition ICD Codes: E46 - Unspecified protein-calorie malnutrition SNOMED: 99996398 (3) Sepsis ICD Codes: A41.9 - Sepsis, unspecified organism SNOMED: 70632281 (4) HTN (hypertension) ICD Codes: I10 - HTN (hypertension) SNOMED: 85123192 (5) Pneumonia ICD Codes: J18.9 - Pneumonia, unspecified organism SNOMED: 001970681 Qualifiers: Qualified Codes: J18.1 - Lobar pneumonia, unspecified organism (6) Anemia ICD Codes: D64.9 - Anemia, unspecified SNOMED: 017231452 Qualifiers: Qualified Codes: D64.9 - Anemia, unspecified (7) UTI (urinary tract infection) ICD Codes: N39.0 - Urinary tract infection, site not specified SNOMED: 19329654 (8) Acute renal failure (ARF) ICD Codes: N17.9 - Acute kidney failure, unspecified SNOMED: 14045365, 505478348 Qualifiers: Qualified Codes: N17.9 - Acute kidney failure, unspecified (9) Cirrhosis ICD Codes: K74.60 - Hepatic cirrhosis SNOMED: 90727996 Status: unchanged Assessment/Plan 02 pulm tx pain control comfort measures dc plan w hospice Subjective Constitutional: Reports: weakness Allergies: Coded Allergies: ASPIRIN (Verified Allergy, Unknown, 10/11/14) All Systems: reviewed and negative except above Subjective o2nc calm in bed Objective Last 24 Hour Vital Signs Date Time Temp Pulse Resp B/P (MAP) Pulse Ox O2 Delivery O2 Flow Rate FiO2 12/24/17 12:00 97.0 96 12 77/88 96 97.0 12/24/17 08:33 98.0 92 12 80/39 98 98.0 12/24/17 04:00 97.1 61 17 77/51 96 97.1 12/24/17 00:00 97.3 88 18 95/41 98 97.3 12/23/17 20:00 97.3 90 17 82/41 98 97.3 12/23/17 19:22 97 Nasal Cannula 2.0 28 12/23/17 19:22 Nasal Cannula 2.0 28 12/23/17 15:48 97.7 88 19 79/47 97 Nasal Cannula 2.0 97.7 Intake and Output 12/23/17 12/24/17 19:00 07:00 Intake Total 960 ml Output Total 450 ml Balance 960 ml -450 ml Intake Oral 960 ml Output Urine Total 450 ml # Bowel Movements 1 1 Height (Feet): 4 Weight (Pounds): 135 General Appearance: lethargic EENT: normal ENT inspection Neck: normal alignment Cardiovascular: normal peripheral pulses, normal rate, regular rhythm Respiratory/Chest: chest wall non-tender, lungs clear, normal breath sounds Abdomen: normal bowel sounds, non tender, soft Neurologic: responsive, motor weakness Skin: normal pigmentation, warm/dry FANY DALE Dec 24, 2017 13:40
--- NOTE | 2017-12-24 13:58 | Pulmonology Progress Note ---
Assessment/Plan Problems: (1) End stage liver disease (2) Acute renal failure (ARF) (3) Bacteriuria (4) Anemia Assessment/Plan no new complans more stable asymptomatic comfort care start oral feeding analgesics prn Subjective ROS Limited/Unobtainable: No Constitutional: Reports: no symptoms HEENT: Repors: no symptoms Respiratory: Reports: no symptoms Allergies: Coded Allergies: ASPIRIN (Verified Allergy, Unknown, 10/11/14) Objective Last 24 Hour Vital Signs Date Time Temp Pulse Resp B/P (MAP) Pulse Ox O2 Delivery O2 Flow Rate FiO2 12/24/17 12:00 97.0 96 12 77/88 96 97.0 12/24/17 08:33 98.0 92 12 80/39 98 98.0 12/24/17 04:00 97.1 61 17 77/51 96 97.1 12/24/17 00:00 97.3 88 18 95/41 98 97.3 12/23/17 20:00 97.3 90 17 82/41 98 97.3 12/23/17 19:22 97 Nasal Cannula 2.0 28 12/23/17 19:22 Nasal Cannula 2.0 28 12/23/17 15:48 97.7 88 19 79/47 97 Nasal Cannula 2.0 97.7 Intake and Output 12/23/17 12/24/17 19:00 07:00 Intake Total 960 ml Output Total 450 ml Balance 960 ml -450 ml Intake Oral 960 ml Output Urine Total 450 ml # Bowel Movements 1 1 Objective Status: somnolent Condition: critical HEENT: atraumatic Neck: full ROM Lungs: clear Heart: HR/BP unstable Abdomen: distended Extremities: no C/C/E Current Medications Medications (Trade) Dose Ordered Sig/Derek Route PRN Reason Start Time Stop Time Status Last Admin Dose Admin Acetaminophen (Tylenol) 650 mg Q4H PRN ORAL fever 12/21/17 14:30 01/19/18 06:29 12/23/17 20:23 Chlorhexidine Gluconate (Lacy-Hex 2%) 1 applic DAILY@2100 TOPIC 12/22/17 21:00 01/21/18 20:59 12/23/17 20:21 Dextrose (Dextrose 50%) 25 ml STAT PRN IV Hypoglycemia 12/22/17 08:30 01/20/18 08:29 Dextrose (Dextrose 50%) 50 ml STAT PRN IV Hypoglycemia 12/22/17 08:30 01/20/18 08:29 Diphenhydramine HCl (Benadryl) 25 mg Q6H PRN ORAL Itching/Pruritis 12/21/17 12:30 01/19/18 06:29 Morphine Sulfate (Morphine Sulfate) 4 mg Q3H PRN SUBQ Severe Breakthru Pain (>7) 12/21/17 14:00 12/28/17 10:59 Ondansetron HCl (Zofran) 4 mg Q6H PRN IVP Nausea & Vomiting 12/21/17 12:30 01/19/18 06:29 Jeni Cabrera MD Dec 24, 2017 13:58
[2017-12-24 15:35] VITALS: BP 87/48
[2017-12-24 20:00] VITALS: BP 75/35
[2017-12-24] MEDS: Dyna-Hex 2% Top Sol 2oz TOPIC SCH (21:04)
[2017-12-25] VITALS: BP 75/36
[2017-12-25 04:00] VITALS: BP 84/50
[2017-12-25 08:00] VITALS: BP 86/46
[2017-12-25 12:00] VITALS: BP 88/50
--- NOTE | 2017-12-25 12:52 | General Progress Note ---
Assessment/Plan Problem List: (1) Shock ICD Codes: R57.9 - Shock, unspecified SNOMED: 37492543 (2) Malnutrition ICD Codes: E46 - Unspecified protein-calorie malnutrition SNOMED: 97597954 (3) Sepsis ICD Codes: A41.9 - Sepsis, unspecified organism SNOMED: 68195824 (4) HTN (hypertension) ICD Codes: I10 - HTN (hypertension) SNOMED: 76164068 (5) Pneumonia ICD Codes: J18.9 - Pneumonia, unspecified organism SNOMED: 382825213 Qualifiers: Qualified Codes: J18.1 - Lobar pneumonia, unspecified organism (6) Anemia ICD Codes: D64.9 - Anemia, unspecified SNOMED: 213901542 Qualifiers: Qualified Codes: D64.9 - Anemia, unspecified (7) UTI (urinary tract infection) ICD Codes: N39.0 - Urinary tract infection, site not specified SNOMED: 23556434 (8) Acute renal failure (ARF) ICD Codes: N17.9 - Acute kidney failure, unspecified SNOMED: 29294752, 683367545 Qualifiers: Qualified Codes: N17.9 - Acute kidney failure, unspecified (9) Cirrhosis ICD Codes: K74.60 - Hepatic cirrhosis SNOMED: 96144296 Status: unchanged Assessment/Plan 02 pulm tx pain control comfort measures dc w hospice Subjective Constitutional: Reports: weakness Allergies: Coded Allergies: ASPIRIN (Verified Allergy, Unknown, 10/11/14) All Systems: reviewed and negative except above Subjective o2nc calm in bed Objective Last 24 Hour Vital Signs Date Time Temp Pulse Resp B/P (MAP) Pulse Ox O2 Delivery O2 Flow Rate FiO2 12/25/17 08:00 94.0 91 11 86/46 95 Nasal Cannula 2.5 94.0 12/25/17 04:00 97.3 87 17 84/50 94 97.3 12/25/17 00:00 97.3 92 17 75/36 97 97.3 12/24/17 20:00 97.3 68 17 75/35 94 97.3 12/24/17 19:06 96 Nasal Cannula 2.0 28 12/24/17 19:06 Nasal Cannula 2.0 28 12/24/17 15:35 97.2 98 12 87/48 96 97.2 Intake and Output 12/24/17 12/25/17 19:00 07:00 Intake Total 360 ml Output Total 200 ml 200 ml Balance 160 ml -200 ml Intake Oral 360 ml Output Urine Total 200 ml 200 ml # Bowel Movements 1 Height (Feet): 4 Weight (Pounds): 135 General Appearance: lethargic EENT: normal ENT inspection Neck: normal alignment Cardiovascular: normal peripheral pulses, normal rate, regular rhythm Respiratory/Chest: chest wall non-tender, decreased breath sounds Abdomen: normal bowel sounds, non tender, soft Extremities: normal inspection Edema: 1+ Arm (L), 1+ Arm (R), 1+ Leg (L), 1+ Leg (R), 1+ Pedal (L), 1+ Pedal ( R), 1+ Generalized Edema: trace edema Neurologic: responsive, motor weakness Skin: normal pigmentation, warm/dry FANY DALE Dec 25, 2017 12:52
--- NOTE | 2017-12-25 13:56 | Pulmonology Progress Note ---
Assessment/Plan Problems: (1) End stage liver disease (2) Acute renal failure (ARF) (3) Bacteriuria (4) Anemia Assessment/Plan no new complains more stable asymptomatic comfort care start oral feeding analgesics prn dc home with hospice care Subjective ROS Limited/Unobtainable: No Constitutional: Reports: no symptoms HEENT: Repors: no symptoms Respiratory: Reports: no symptoms Allergies: Coded Allergies: ASPIRIN (Verified Allergy, Unknown, 10/11/14) Objective Last 24 Hour Vital Signs Date Time Temp Pulse Resp B/P (MAP) Pulse Ox O2 Delivery O2 Flow Rate FiO2 12/25/17 12:00 97.2 98 16 88/50 98 Nasal Cannula 2.5 97.2 12/25/17 08:00 94.0 91 11 86/46 95 Nasal Cannula 2.5 94.0 12/25/17 04:00 97.3 87 17 84/50 94 97.3 12/25/17 00:00 97.3 92 17 75/36 97 97.3 12/24/17 20:00 97.3 68 17 75/35 94 97.3 12/24/17 19:06 96 Nasal Cannula 2.0 28 12/24/17 19:06 Nasal Cannula 2.0 28 12/24/17 15:35 97.2 98 12 87/48 96 97.2 Intake and Output 12/24/17 12/25/17 19:00 07:00 Intake Total 360 ml Output Total 200 ml 200 ml Balance 160 ml -200 ml Intake Oral 360 ml Output Urine Total 200 ml 200 ml # Bowel Movements 1 Objective Status: somnolent Condition: critical HEENT: atraumatic Neck: full ROM Lungs: clear Heart: HR/BP unstable Abdomen: distended Extremities: no C/C/E Current Medications Medications (Trade) Dose Ordered Sig/Derek Route PRN Reason Start Time Stop Time Status Last Admin Dose Admin Acetaminophen (Tylenol) 650 mg Q4H PRN ORAL fever 12/21/17 14:30 01/19/18 06:29 12/23/17 20:23 Chlorhexidine Gluconate (Lacy-Hex 2%) 1 applic DAILY@2100 TOPIC 12/22/17 21:00 01/21/18 20:59 12/24/17 21:04 Dextrose (Dextrose 50%) 25 ml STAT PRN IV Hypoglycemia 12/22/17 08:30 01/20/18 08:29 Dextrose (Dextrose 50%) 50 ml STAT PRN IV Hypoglycemia 12/22/17 08:30 01/20/18 08:29 Diphenhydramine HCl (Benadryl) 25 mg Q6H PRN ORAL Itching/Pruritis 12/21/17 12:30 01/19/18 06:29 Morphine Sulfate (Morphine Sulfate) 4 mg Q3H PRN SUBQ Severe Breakthru Pain (>7) 12/21/17 14:00 12/28/17 10:59 Ondansetron HCl (Zofran) 4 mg Q6H PRN IVP Nausea & Vomiting 12/21/17 12:30 01/19/18 06:29 Jeni Cabrera MD Dec 25, 2017 13:56
[2017-12-25 16:00] VITALS: BP 84/47
[2017-12-25 20:00] VITALS: BP 80/41
[2017-12-25] MEDS: Dyna-Hex 2% Top Sol 2oz TOPIC SCH (20:43)
[2017-12-26] VITALS: BP 82/39
[2017-12-26 04:00] VITALS: BP 86/50
[2017-12-26 08:00] VITALS: BP 93/53
[2017-12-26 12:01] VITALS: BP 87/50
--- NOTE | 2017-12-26 13:07 | Pulmonology Progress Note ---
Assessment/Plan Problems: (1) End stage liver disease (2) Acute renal failure (ARF) (3) Bacteriuria (4) Anemia Assessment/Plan doing better more stable asymptomatic comfort care start oral feeding analgesics prn dc home with hospice care today Subjective Constitutional: Reports: no symptoms Allergies: Coded Allergies: ASPIRIN (Verified Allergy, Unknown, 10/11/14) Objective Last 24 Hour Vital Signs Date Time Temp Pulse Resp B/P (MAP) Pulse Ox O2 Delivery O2 Flow Rate FiO2 12/26/17 12:01 97.3 81 20 87/50 95 Nasal Cannula 2.5 97.3 12/26/17 08:00 97.5 86 20 93/53 95 Nasal Cannula 2.5 97.5 12/26/17 04:00 97.0 88 16 86/50 98 97.0 12/26/17 00:00 94.5 89 19 82/39 96 Nasal Cannula 94.5 12/25/17 20:23 97 Nasal Cannula 2.0 28 12/25/17 20:23 Nasal Cannula 2.0 28 12/25/17 20:00 94.7 81 20 80/41 96 94.7 12/25/17 16:00 94.4 84 18 84/47 100 Nasal Cannula 2.5 94.4 Intake and Output 12/25/17 12/26/17 19:00 07:00 Intake Total 360 ml Output Total 300 ml 150 ml Balance 60 ml -150 ml Intake Oral 360 ml Output Urine Total 300 ml 150 ml # Bowel Movements 1 1 Objective Status: somnolent Condition: critical HEENT: atraumatic Neck: full ROM Lungs: clear Heart: HR/BP unstable Abdomen: distended Extremities: no C/C/E Current Medications Medications (Trade) Dose Ordered Sig/Derek Route PRN Reason Start Time Stop Time Status Last Admin Dose Admin Acetaminophen (Tylenol) 650 mg Q4H PRN ORAL fever 12/21/17 14:30 01/19/18 06:29 12/23/17 20:23 Chlorhexidine Gluconate (Lacy-Hex 2%) 1 applic DAILY@2100 TOPIC 12/22/17 21:00 01/21/18 20:59 12/25/17 20:43 Dextrose (Dextrose 50%) 25 ml STAT PRN IV Hypoglycemia 12/22/17 08:30 01/20/18 08:29 Dextrose (Dextrose 50%) 50 ml STAT PRN IV Hypoglycemia 12/22/17 08:30 01/20/18 08:29 Diphenhydramine HCl (Benadryl) 25 mg Q6H PRN ORAL Itching/Pruritis 12/21/17 12:30 01/19/18 06:29 Morphine Sulfate (Morphine Sulfate) 4 mg Q3H PRN SUBQ Severe Breakthru Pain (>7) 12/21/17 14:00 12/28/17 10:59 Ondansetron HCl (Zofran) 4 mg Q6H PRN IVP Nausea & Vomiting 12/21/17 12:30 01/19/18 06:29 Jeni Cabrera MD Dec 26, 2017 13:07
--- NOTE | 2017-12-26 13:41 | General Progress Note ---
Assessment/Plan Problem List: (1) Shock ICD Codes: R57.9 - Shock, unspecified SNOMED: 16872917 (2) Malnutrition ICD Codes: E46 - Unspecified protein-calorie malnutrition SNOMED: 97540572 (3) Sepsis ICD Codes: A41.9 - Sepsis, unspecified organism SNOMED: 32920884 (4) HTN (hypertension) ICD Codes: I10 - HTN (hypertension) SNOMED: 08387133 (5) Pneumonia ICD Codes: J18.9 - Pneumonia, unspecified organism SNOMED: 101256276 Qualifiers: Qualified Codes: J18.1 - Lobar pneumonia, unspecified organism (6) Anemia ICD Codes: D64.9 - Anemia, unspecified SNOMED: 213098146 Qualifiers: Qualified Codes: D64.9 - Anemia, unspecified (7) UTI (urinary tract infection) ICD Codes: N39.0 - Urinary tract infection, site not specified SNOMED: 05923715 (8) Acute renal failure (ARF) ICD Codes: N17.9 - Acute kidney failure, unspecified SNOMED: 84371244, 504535265 Qualifiers: Qualified Codes: N17.9 - Acute kidney failure, unspecified (9) Cirrhosis ICD Codes: K74.60 - Hepatic cirrhosis SNOMED: 13054238 Status: unchanged Assessment/Plan 02 pulm tx pain control comfort measures dc w hospice Subjective Constitutional: Reports: weakness Allergies: Coded Allergies: ASPIRIN (Verified Allergy, Unknown, 10/11/14) All Systems: reviewed and negative except above Subjective o2nc calm in bed Objective Last 24 Hour Vital Signs Date Time Temp Pulse Resp B/P (MAP) Pulse Ox O2 Delivery O2 Flow Rate FiO2 12/26/17 12:01 97.3 81 20 87/50 95 Nasal Cannula 2.5 97.3 12/26/17 08:00 97.5 86 20 93/53 95 Nasal Cannula 2.5 97.5 12/26/17 04:00 97.0 88 16 86/50 98 97.0 12/26/17 00:00 94.5 89 19 82/39 96 Nasal Cannula 94.5 12/25/17 20:23 97 Nasal Cannula 2.0 28 12/25/17 20:23 Nasal Cannula 2.0 28 12/25/17 20:00 94.7 81 20 80/41 96 94.7 12/25/17 16:00 94.4 84 18 84/47 100 Nasal Cannula 2.5 94.4 Intake and Output 12/25/17 12/26/17 19:00 07:00 Intake Total 360 ml Output Total 300 ml 150 ml Balance 60 ml -150 ml Intake Oral 360 ml Output Urine Total 300 ml 150 ml # Bowel Movements 1 1 Height (Feet): 4 Weight (Pounds): 135 General Appearance: lethargic EENT: normal ENT inspection Neck: normal alignment Cardiovascular: normal peripheral pulses, normal rate, regular rhythm Respiratory/Chest: chest wall non-tender, decreased breath sounds Abdomen: normal bowel sounds, non tender, soft Extremities: normal inspection Edema: 1+ Arm (L), 1+ Arm (R), 1+ Leg (L), 1+ Leg (R), 1+ Pedal (L), 1+ Pedal ( R), 1+ Generalized Edema: trace edema Neurologic: motor weakness Skin: normal pigmentation, warm/dry FANY DALE Dec 26, 2017 13:41
--- NOTE | 2017-12-27 14:08 | Discharge Summary ---
Discharge Summary Discharge Summary Discharge Summary DATE OF ADMISSION: 12/20/2017 DATE OF DISCHARGE: 12/26/2017 CONSULTANTS: Dr. Jeni Vasquez BRIEF HOSPITAL COURSE: Patient is a 77-year-old female, who lives at home, previously on hospice, apparently became very short of breath and weak, and noted bright red blood on diaper, daughter reversed her hospice status and patient was taken to [facility]. She has medical history significant for end-stage liver disease with cirrhosis, CHF and ascites. On arrival to ED, patient was hypotensive 81/44. She had a hard IV access, a central line was inserted to the left internal jugular vein. She was given IV fluids. Blood work showed leukocytosis WBC 17.3, hemoglobin 9.8, hematocrit 29.4, platelet low 114. Creatinine was elevated to 1.8, BUN 66. Chest x-ray showed low lung volumes with patchy left basilar atelectasis/consolidation. She was admitted to ICU for sepsis, pneumonia, urinary tract infection, anemia, renal failure. She was given levophed drip. She was also started on midodrine and albumin for possible hepatorenal syndrome. She was also given meropenem. Initially EKG was in sinus tachycardia, at ICU patient had paroxysmal atrial fibrillation where her heart rate rises to 150 bpm. Troponin was 0.0. She was given digoxin. Anticoagulation therapy contraindicated due to liver cirrhosis and coagulopathy. She had a drop in hemoglobin, INR was elevated to 1.6, she was given 1 unit FFP transfusion. Acute renal failure secondary to acute tubular necrosis due to unstable hemodynamics and hypotension. She had low potassium and replacements were given. She came in with left sacral D dye pressure ulcer and then intertrigo on the left breast. She was given wound care. Per family wishes patient was placed on comfort care. Cultures did not isolate any growth. She was eventually discharged home on hospice. FINAL DIAGNOSES: End-stage renal failure with ascites and encephalopathy Acute renal failure due to ATN Drop in hemoglobin Coagulopathy Severe protein calorie malnutrition Sepsis Pneumonia Possible urinary tract infection Hypertension Major depression with psychotic features Possible lower GI bleed Paroxysmal atrial fibrillation Portal hypertension with ascites and peripheral edema Liver cirrhosis History of congestive heart failure Left sacral DTI pressure ulcer and left breast fold intertrigo with partial thickness skin loss, present on admission Comfort care/palliative care DISPOSITION: Patient was discharged home with hospice I have been assigned to dictate discharge summary on this account, and I was not involved in the patient's management. Yadira Bear NP Dec 27, 2017 14:08
== END 2017-12-26 15:27 | disposition hospice, home (50) | DRG 720 ==
LOC: EDBD 23:13 → EMR 23:25 → EDBEDREQ 12-20 02:36 → ICU 12-20 02:50 → EDBEDREQ 12-20 03:23 → 4E 12-21 12:14
PROC: 30233K1 Transfusion of Nonautologous Frozen Plasma into Peripheral Vein, Percutaneous Approach (ICD-10-PCS; principal; 2017-12-20)
DX: A41.9 Sepsis, unspecified organism (principal); N17.0 Acute kidney failure with tubular necrosis; K76.7 Hepatorenal syndrome; R65.21 Severe sepsis with septic shock; E43 Unspecified severe protein-calorie malnutrition; N18.6 End stage renal disease; I13.2 Hypertensive heart and chronic kidney disease with heart failure and with stage 5 chronic kidney disease, or end stage renal disease; J18.9 Pneumonia, unspecified organism; K76.6 Portal hypertension; I48.0 Paroxysmal atrial fibrillation; I45.2 Bifascicular block; K70.31 Alcoholic cirrhosis of liver with ascites; K92.2 Gastrointestinal hemorrhage, unspecified; N39.0 Urinary tract infection, site not specified; Z66 Do not resuscitate; D64.9 Anemia, unspecified; Z88.6 Allergy status to analgesic agent; K72.90 Hepatic failure, unspecified without coma; E83.51 Hypocalcemia; F32.3 Major depressive disorder, single episode, severe with psychotic features; L89.150 Pressure ulcer of sacral region, unstageable; L30.4 Erythema intertrigo
CPT/HCPCS: 36415; 71045; 80053; 81003; 82043; 82044; 82140; 82150; 82248; 82570; 82962; 83605; 83690; 83735; 84100; 84300; 84484; 85007; 85025; 85610; 85730; 86850; 86900; 86901; 86920; 86927; 87040; 87081; 87086; 89050; 93005; 93970; 94760; 99291; J1815; J8499